=== PATIENT | male | born 1965 | race Caucasian/White ===

== ENCOUNTER 2021-10-29 02:28 | Observation (INO) | payer MEDICAID, SELFPAY ==
[2021-10-29] VITALS (8 sets, daily range): BP systolic 112–179; BP diastolic 68–88; PULSE 59–94; RESP 9–22; TEMP 37.1–37.8; O2SAT 92–98; BMI 27.3
--- NOTE | ~2021-10-29 | US_ITS ---
EXAMINATION: US ABDOMEN LIMITED CLINICAL INFORMATION: Elevated bilirubin. COMPARISON: Ultrasound abdomen complete dated 07/18/2016 and 05/05/2010. CT abdomen and pelvis with contrast dated 08/25/2012. TECHNIQUE: Real-time imaging of the right upper quadrant abdominal viscera. FINDINGS: PANCREAS: Normal. LIVER:The liver is normal in size. The liver contour is normal. Parenchymal echogenicity is normal. No focal hepatic lesion. Mild prominence of intrahepatic ducts are noted GALLBLADDER: There is gallbladder sludge but no echogenic stones seen. There is mild gallbladder wall thickening measuring 0.35 cm. No pericholecystic fluid collection seen. COMMON BILE DUCT: Normal in caliber measuring 0.52 cm in diameter. RIGHT KIDNEY: Normal. No hydronephrosis. No renal calculi or focal parenchymal lesions. The kidney measures 12.3 cm in maximum dimension. FREE FLUID: None. US/US abdomen limited IMPRESSION: Gallbladder sludge but no echogenic stones. There is mild wall thickening. Mild prominence of intrahepatic ducts. Liver is unremarkable otherwise.
--- NOTE | ~2021-10-29 | CT_ITS ---
EXAMINATION: CT ANGIOGRAM OF THE CHEST WITH AND WITHOUT CONTRAST (CT PULMONARY ANGIOGRAM FOR PE) CLINICAL INFORMATION: Reason for Exam chest pain COMPARISON: 07/18/2016 TECHNIQUE: Prior to contrast administration, noncontrast localization images were obtained. Subsequently, multidetector volumetric imaging was performed from the thoracic inlet to below the diaphragms following the administration of 65 mL Omnipaque 350 intravenous contrast. No contrast reaction reported Sagittal, coronal, and MIP oblique sagittal reformatted images were obtained on the CT workstation, uploaded to PACS, and reviewed. This CT examination was performed using dose optimization techniques as appropriate, variously including the following: *Automated exposure control *Adjustment of mA and/or kV according to patient size (this includes techniques or standardized protocols for targeted exams where dose is matched to indication/reason for exam; i.e. extremities or head) *Use of iterative reconstruction technique Total exam dose-length product 294 mGy-cm FINDINGS: QUALITY OF STUDY/CONTRAST BOLUS: Satisfactory. PULMONARY ARTERIES: No central or segmental pulmonary emboli. Dilated pulmonary arteries, with the main pulmonary artery measuring approximately 4.2 cm, suspicious for pulmonary artery hypertension. THORACIC AORTA: No aneurysm or dissection. LUNG: Mild dependent atelectasis. No regions of consolidation bilaterally. Calcified granuloma noted in the right middle lobe. PLEURA: No pleural effusion or pneumothorax. MEDIASTINUM: Thyroid gland appears diminutive. There are subcentimeter mediastinal lymph nodes within the range of normal variation. Cardiac size is within normal limits; no pericardial effusion. Coronary artery calcifications are present. CHEST WALL/AXILLA: No axillary or internal mammary lymphadenopathy. OSSEOUS STRUCTURES: No acute or suspicious osseous abnormality. UPPER ABDOMEN: Nodular contour of the liver is suspicious for cirrhosis. Visualized spleen appears enlarged. No reflux of contrast into the hepatic veins to suggest elevated right heart pressures. CT/CT angio chest PE protocol IMPRESSION: 1. No pulmonary embolus identified. 2. Dilated pulmonary arteries, suspicious for pulmonary artery hypertension. 3. Coronary artery calcifications. Correlation with cardiac risk factors is recommended. VTE: negative
--- NOTE | 2021-10-29 03:03 | ECG_ITS ---
Test Reason : CHEST PAIN Blood Pressure : / mmHG Vent. Rate : 086 BPM Atrial Rate : 086 BPM P-R Int : 148 ms QRS Dur : 086 ms QT Int : 390 ms P-R-T Axes : 067 066 050 degrees QTc Int : 466 ms Normal sinus rhythm Nonspecific ST abnormality Abnormal ECG When compared with ECG of 26-MAY-2017 16:14, Nonspecific ST abnormality is now Present Referred By: Frances Barnes Electronically Signed By:OSWALDO ECHAVARRIA
--- NOTE | 2021-10-29 03:28 | ED_ITS ---
HPI - Chest Pain General Chief Complaint: Chest Pain Stated Complaint: ? Time Seen by Provider: 10/29/21 02:43 Source: patient Mode of arrival: EMS Limitations: no limitations History of Present Illness HPI narrative: 56 yo male with hx of hep C, IVDA heroin, on methadone, comes in with c/o pleuritic chest pain and bilateral leg pain x 2 days with leg swelling. Last used heroin 24 hours ago. Patient denies cough. He reports he has not had swelling like this before. Patient denies having endocarditis before as well. MD complaint: chest pain Pertinent past history: other (IVDA) Onset (ago): day(s) (2) Timing of current episode: episodic Prior episodes: No Onset: during rest Pain location: substernal Pain radiation: none Severity: moderate Quality: sharp Relieving factors: nothing Exacerbating factors: inspiration Context: other (IVDA) Associated symptoms: nausea, dyspnea, leg swelling and other (chills) Treatment prior to arrival: none Related Data Allergies Allergy/AdvReac Type Severity Reaction Status Date / Time No Known Allergies Allergy Mild NOT Unverified 11/07/19 15:45 APPLICABLE Review of Systems Review of Systems: Constitutional : No Weight loss, No Fever, pos Chills ENT/Mouth : No sore throat, No Rhinorrhea Eyes: No Eye Pain, No Swelling Cardiovascular : pos Chest Pain, pos SOB, no Dyspnea on Exertion, No Orthopnea, pos Edema, No Palpitations Respiratory : No Cough, No Sputum Gastrointestinal : pos Nausea, No Vomiting, No Diarrhea, No abdominal Pain, No Hematochezia, No Melena Genitourinary : No Dysuria, No Urinary Frequency Musculoskeletal : No joint pain, No Myalgias, No Joint Swelling Skin : No Skin Lesions, No rash Neuro : No Weakness, No Numbness, No Dizziness, No Headache Psych : No Anxiety/Panic, No Depression Heme/Lymph: No Bruising, No Lymphadenopathy Endocrine : No Polyuria, No Polydipsia All other systems reviewed and are negative [facility] Past Medical History Attestation statement: The following information was validated with the patient. Medical History Hepatitis C Intravenous drug abuse Social History Social History (Updated 10/29/21 @ 03:35 by Frances Barnes DO) Patient Tobacco Use Status: Current someday Tobacco user Substance Use Type: Heroin Advance Directives: No Advance Directives Information Provided: Yes Physical Exam Vital Signs: Vital Signs: Last Vital Signs Temp 100.0 F 10/29/21 04:00 Pulse 79 10/29/21 05:53 Resp 13 10/29/21 05:53 BP 127/78 10/29/21 05:53 Pulse Ox 92 10/29/21 05:53 O2 Del Method 10/29/21 05:53 O2 Flow Rate 2 10/29/21 05:53 BMI result Body Mass Index 27.3 Appearance: Alert. Oriented X3. No acute distress. Eyes: Pupils equal, round and reactive to light. Scleral icterus ENT: Pharynx normal. Neck: Normal inspection. Neck supple. CVS: Normal heart rate and rhythm. Pulses normal. Respiratory: No respiratory distress. Breath sounds diminished throughout Abdomen: Soft and nontender. Skin: Skin warm and dry. Normal skin color. Normal skin turgor. + track beach noted both forearms Extremities: 2+ pitting lower extremity edema. No erythema or warmth Neuro: Oriented X 3. No motor deficit. No sensory deficit. Course Course Course Narrative: planned admit for endocarditis rule out - hospitalist notified 6am MDM - Chest Pain MDM Narrative Medical decision making narrative: 56 yo male with hx of hep C, IVDA here with chills, chest pain, leg swelling at this time will obtain blood cultures, lactic acid, EKG, CTA for pneumonia/PE, empiric cefepime and vancomycin for possible endocarditis - anticipate ad mission. Lab Data Result diagrams: 10/29/21 03:26 10/29/21 04:11 Labs: Lab Results 10/29/21 10/29/21 10/29/21 Range/Units 03:26 03:26 03:26 WBC 8.6 (4.8-10.8) X10*3/uL RBC 4.21 L (4.60-5.80) X10*6/uL Hgb 13.5 L (14.0-18.0) g/dl Hct 39.9 L (42.0-52.0) % MCV 94.8 (80.0-98.0) fL MCH 32.1 (27.0-33.0) pg MCHC 33.8 (31.0-36.0) g/dl RDW 16.0 (11.0-16.0) % Plt Count 59 L (160-400) X10*3/uL MPV 12.7 H (9.4-12.4) fL Immature Gran % (Auto) 0.6 H (0.0-0.4) % Neut % (Auto) 82.5 H (45-73) % Lymph % (Auto) 8.6 L (20-40) % [place] % (Auto) 7.8 (2-11) % Eos % (Auto) 0.0 (0-4) % Baso % (Auto) 0.5 (0-2) % Lymph # (Auto) 0.7 L (1.2-4.9) X10*3/uL [place] # (Auto) 0.7 (0.1-1.2) X10*3/uL Eos # (Auto) 0.0 (0.0-0.4) X10*3/uL Baso # (Auto) 0.0 (0.0-0.2) X10*3/uL Abs Immat Gran (auto) 0.05 H (0.00-0.03) X10*3/uL Absolute Neuts (auto) 7.1 (2.0-8.3) x10*3/uL Absolute Nucleated RBC 0.000 (0.0-0.012) X10*3/uL Nucleated RBC % (auto) 0.0 (0.0-0.2) /100WBC PT (10.0-13.1) SEC INR (0.9-1.1) APTT (26.0-36.4) SEC Sodium (135-145) mmol/L Potassium (3.3-5.1) mmol/L Chloride (96-108) mmol/L Carbon Dioxide (22-29) mmol/L Anion Gap (12-20) BUN (9-16) mg/dL Creatinine (0.5-1.4) mg/dL Estim Creat Clear Calc Estimated GFR Random Glucose (60-115) mg/dL Lactic Acid 2.1 H* (0.5-2.0) mmol/L Calcium (8.4-10.2) mg/dL Magnesium (1.6-2.6) mg/dL Total Bilirubin (0.0-1.0) mg/dL Direct Bilirubin (0.0-0.5) mg/dL AST (5-37) U/L ALT (0-40) U/L Alkaline Phosphatase (39-117) U/L Total Creatine Kinase (38-174) U/L Troponin I High Sens (<3.5-35.0) ng/L B-Natriuretic Peptide 197 H (<100) pg/mL Total Protein (6.5-8.0) g/dL Albumin (3.5-5.0) g/dL Procalcitonin ng/mL Urine Color Urine Appearance Urine pH (5.0-9.0) Ur Specific [place] (1.005-1.025) Urine Protein (Neg-Trace) mg/dL Urine Glucose (UA) (Negative) mg/dL Urine Ketones (Negative) mg/dL Urine Blood (Negative) Urine Nitrite (Negative) Ur Leukocyte Esterase (Negative) Urine Opiates Screen (Not Detect) Urine Fentanyl Screen (Not Detect) Ur Barbiturates Screen (Not Detect) Ur Phencyclidine Scrn (Not Detect) Ur Amphetamines Screen (Not Detect) U Benzodiazepines Scrn (Not Detect) Urine Cocaine Screen (Not Detect) U Marijuana (THC) Screen (Not Detect) COVID-19 (DEREK) (Negative) COVID-19 Clin Com 10/29/21 10/29/21 10/29/21 Range/Units 03:26 03:26 03:26 WBC (4.8-10.8) X10*3/uL RBC (4.60-5.80) X10*6/uL Hgb (14.0-18.0) g/dl Hct (42.0-52.0) % MCV (80.0-98.0) fL MCH (27.0-33.0) pg MCHC (31.0-36.0) g/dl RDW (11.0-16.0) % Plt Count (160-400) X10*3/uL MPV (9.4-12.4) fL Immature Gran % (Auto) (0.0-0.4) % Neut % (Auto) (45-73) % Lymph % (Auto) (20-40) % [place] % (Auto) (2-11) % Eos % (Auto) (0-4) % Baso % (Auto) (0-2) % Lymph # (Auto) (1.2-4.9) X10*3/uL [place] # (Auto) (0.1-1.2) X10*3/uL Eos # (Auto) (0.0-0.4) X10*3/uL Baso # (Auto) (0.0-0.2) X10*3/uL Abs Immat Gran (auto) (0.00-0.03) X10*3/uL Absolute Neuts (auto) (2.0-8.3) x10*3/uL Absolute Nucleated RBC (0.0-0.012) X10*3/uL Nucleated RBC % (auto) (0.0-0.2) /100WBC PT 18.6 H (10.0-13.1) SEC INR 1.6 H (0.9-1.1) APTT 34.5 (26.0-36.4) SEC Sodium (135-145) mmol/L Potassium (3.3-5.1) mmol/L Chloride (96-108) mmol/L Carbon Dioxide (22-29) mmol/L Anion Gap (12-20) BUN (9-16) mg/dL Creatinine (0.5-1.4) mg/dL Estim Creat Clear Calc Estimated GFR Random Glucose (60-115) mg/dL Lactic Acid (0.5-2.0) mmol/L Calcium (8.4-10.2) mg/dL Magnesium (1.6-2.6) mg/dL Total Bilirubin (0.0-1.0) mg/dL Direct Bilirubin (0.0-0.5) mg/dL AST (5-37) U/L ALT (0-40) U/L Alkaline Phosphatase (39-117) U/L Total Creatine Kinase (38-174) U/L Troponin I High Sens 5.2 (<3.5-35.0) ng/L B-Natriuretic Peptide (<100) pg/mL Total Protein (6.5-8.0) g/dL Albumin (3.5-5.0) g/dL Procalcitonin ng/mL Urine Color Urine Appearance Urine pH (5.0-9.0) Ur Specific [place] (1.005-1.025) Urine Protein (Neg-Trace) mg/dL Urine Glucose (UA) (Negative) mg/dL Urine Ketones (Negative) mg/dL Urine Blood (Negative) Urine Nitrite (Negative) Ur Leukocyte Esterase (Negative) Urine Opiates Screen (Not Detect) Urine Fentanyl Screen (Not Detect) Ur Barbiturates Screen (Not Detect) Ur Phencyclidine Scrn (Not Detect) Ur Amphetamines Screen (Not Detect) U Benzodiazepines Scrn (Not Detect) Urine Cocaine Screen (Not Detect) U Marijuana (THC) Screen (Not Detect) COVID-19 (DEREK) Negative (Negative) COVID-19 Clin Com See Note 10/29/21 10/29/21 10/29/21 Range/Units 03:26 04:11 04:40 WBC (4.8-10.8) X10*3/uL RBC (4.60-5.80) X10*6/uL Hgb (14.0-18.0) g/dl Hct (42.0-52.0) % MCV (80.0-98.0) fL MCH (27.0-33.0) pg MCHC (31.0-36.0) g/dl RDW (11.0-16.0) % Plt Count (160-400) X10*3/uL MPV (9.4-12.4) fL Immature Gran % (Auto) (0.0-0.4) % Neut % (Auto) (45-73) % Lymph % (Auto) (20-40) % [place] % (Auto) (2-11) % Eos % (Auto) (0-4) % Baso % (Auto) (0-2) % Lymph # (Auto) (1.2-4.9) X10*3/uL [place] # (Auto) (0.1-1.2) X10*3/uL Eos # (Auto) (0.0-0.4) X10*3/uL Baso # (Auto) (0.0-0.2) X10*3/uL Abs Immat Gran (auto) (0.00-0.03) X10*3/uL Absolute Neuts (auto) (2.0-8.3) x10*3/uL Absolute Nucleated RBC (0.0-0.012) X10*3/uL Nucleated RBC % (auto) (0.0-0.2) /100WBC PT (10.0-13.1) SEC INR (0.9-1.1) APTT (26.0-36.4) SEC Sodium 134 L (135-145) mmol/L Potassium 3.5 (3.3-5.1) mmol/L Chloride 102 (96-108) mmol/L Carbon Dioxide 24 (22-29) mmol/L Anion Gap 12 (12-20) BUN 6 L (9-16) mg/dL Creatinine 0.73 (0.5-1.4) mg/dL Estim Creat Clear Calc 106.7 Estimated GFR > 60 Random Glucose 105 (60-115) mg/dL Lactic Acid (0.5-2.0) mmol/L Calcium 8.0 L (8.4-10.2) mg/dL Magnesium 1.6 (1.6-2.6) mg/dL Total Bilirubin 4.5 H (0.0-1.0) mg/dL Direct Bilirubin 1.7 H (0.0-0.5) mg/dL AST 96 H (5-37) U/L ALT 50 H (0-40) U/L Alkaline Phosphatase 156 H (39-117) U/L Total Creatine Kinase 114 (38-174) U/L Troponin I High Sens (<3.5-35.0) ng/L B-Natriuretic Peptide (<100) pg/mL Total Protein 8.1 H (6.5-8.0) g/dL Albumin 2.7 L (3.5-5.0) g/dL Procalcitonin 0.68 ng/mL Urine Color Urine Appearance Urine pH (5.0-9.0) Ur Specific [place] (1.005-1.025) Urine Protein (Neg-Trace) mg/dL Urine Glucose (UA) (Negative) mg/dL Urine Ketones (Negative) mg/dL Urine Blood (Negative) Urine Nitrite (Negative) Ur Leukocyte Esterase (Negative) Urine Opiates Screen Not Detected (Not Detect) Urine Fentanyl Screen POSITIVE H (Not Detect) Ur Barbiturates Screen Not Detected (Not Detect) Ur Phencyclidine Scrn Not Detected (Not Detect) Ur Amphetamines Screen Not Detected (Not Detect) U Benzodiazepines Scrn Not Detected (Not Detect) Urine Cocaine Screen Not Detected (Not Detect) U Marijuana (THC) Screen Not Detected (Not Detect) COVID-19 (DEREK) (Negative) COVID-19 Clin [facility] 10/29/21 Range/Units 04:40 WBC (4.8-10.8) X10*3/uL RBC (4.60-5.80) X10*6/uL Hgb (14.0-18.0) g/dl Hct (42.0-52.0) % MCV (80.0-98.0) fL MCH (27.0-33.0) pg MCHC (31.0-36.0) g/dl RDW (11.0-16.0) % Plt Count (160-400) X10*3/uL MPV (9.4-12.4) fL Immature Gran % (Auto) (0.0-0.4) % Neut % (Auto) (45-73) % Lymph % (Auto) (20-40) % [place] % (Auto) (2-11) % Eos % (Auto) (0-4) % Baso % (Auto) (0-2) % Lymph # (Auto) (1.2-4.9) X10*3/uL [place] # (Auto) (0.1-1.2) X10*3/uL Eos # (Auto) (0.0-0.4) X10*3/uL Baso # (Auto) (0.0-0.2) X10*3/uL Abs Immat Gran (auto) (0.00-0.03) X10*3/uL Absolute Neuts (auto) (2.0-8.3) x10*3/uL Absolute Nucleated RBC (0.0-0.012) X10*3/uL Nucleated RBC % (auto) (0.0-0.2) /100WBC PT (10.0-13.1) SEC INR (0.9-1.1) APTT (26.0-36.4) SEC Sodium (135-145) mmol/L Potassium (3.3-5.1) mmol/L Chloride (96-108) mmol/L Carbon Dioxide (22-29) mmol/L Anion Gap (12-20) BUN (9-16) mg/dL Creatinine (0.5-1.4) mg/dL Estim Creat Clear Calc Estimated GFR Random Glucose (60-115) mg/dL Lactic Acid (0.5-2.0) mmol/L Calcium (8.4-10.2) mg/dL Magnesium (1.6-2.6) mg/dL Total Bilirubin (0.0-1.0) mg/dL Direct Bilirubin (0.0-0.5) mg/dL AST (5-37) U/L ALT (0-40) U/L Alkaline Phosphatase (39-117) U/L Total Creatine Kinase (38-174) U/L Troponin I High Sens (<3.5-35.0) ng/L B-Natriuretic Peptide (<100) pg/mL Total Protein (6.5-8.0) g/dL Albumin (3.5-5.0) g/dL Procalcitonin ng/mL Urine Color Dark Yellow Urine Appearance Clear Urine pH 7.0 (5.0-9.0) Ur Specific [place] 1.015 (1.005-1.025) Urine Protein Negative (Neg-Trace) mg/dL Urine Glucose (UA) Negative (Negative) mg/dL Urine Ketones Negative (Negative) mg/dL Urine Blood Negative (Negative) Urine Nitrite Negative (Negative) Ur Leukocyte Esterase Negative (Negative) Urine Opiates Screen (Not Detect) Urine Fentanyl Screen (Not Detect) Ur Barbiturates Screen (Not Detect) Ur Phencyclidine Scrn (Not Detect) Ur Amphetamines Screen (Not Detect) U Benzodiazepines Scrn (Not Detect) Urine Cocaine Screen (Not Detect) U Marijuana (THC) Screen (Not Detect) COVID-19 (DEREK) (Negative) COVID-19 Clin Com ECG Data ECG #1: Attestation: I personally reviewed and interpreted this ECG as follows: ECG interpretation date: 10/29/21 ECG interpretation time: 03:46 Interpretation: Rate: 86 Rhythm: NSR [place]: normal Normal P waves. Normal SHELLY. Normal QRS complex. ST T wave : nonspecific, no FELIPE, slight depression ST seg inf leads qTC: slightly prolonged prior studies: none The study has been interpreted contemporaneously by me. . Discharge Plan Discharge Clinical Impression: Chest pain, Fever, Thrombocytopenia, Elevated LFTs, Acidosis, lactic Patient Disposition: Admitted As Inpatient
[2021-10-29 03:34] LABS: Basophils Percent Auto 0.5 % (0-2); Hemoglobin 13.5 g/dl (14.0-18.0); Mean Corpuscular HGB Conc 33.8 g/dl (31.0-36.0); Mean Corpuscular Volume 94.8 fL (80.0-98.0); PLT CLUMP 1; SCAN SMEAR FLAG 1
[2021-10-29 03:36] LABS: Hematocrit 39.9 % (42.0-52.0); Imm Gran Abs Auto 0.05 X10*3/uL (0.00-0.03); Imm Gran Pct Auto 0.6 % (0.0-0.4); Lymphocytes Absolute Auto 0.7 X10*3/uL (1.2-4.9); Lymphocytes Percent Auto 8.6 % (20-40); Mean Corpuscular Hemoglobin 32.1 pg (27.0-33.0); Mean Platelet Volume 12.7 fL (9.4-12.4); Monocytes Absolute Auto 0.7 X10*3/uL (0.1-1.2); Monocytes Percent Auto 7.8 % (2-11); Neutrophils Absolute Auto 7.1 x10*3/uL (2.0-8.3); Neutrophils Percent Auto 82.5 % (45-73); Red Blood Count 4.21 X10*6/uL (4.60-5.80)
[2021-10-29] MEDS: cefEPime HCl 2 GM in 0.9 % Sodium Chloride 50 ML IV ×2 (03:36→15:41)
[2021-10-29 03:38] LABS: MANUAL DIFF FLAG NO; Platelet Count 59 X10*3/uL (160-400); White Blood Count 8.6 X10*3/uL (4.8-10.8)
[2021-10-29 03:39] LABS: INTERNATIONAL NORM RATIO 1.6 (0.9-1.1); Prothrombin Time 18.6 SEC (10.0-13.1)
[2021-10-29 03:42] LABS: Partial Thromboplastin Time 34.5 SEC (26.0-36.4)
[2021-10-29 03:46] LABS: COVID-19 Test Negative (Negative)
[2021-10-29 03:50] LABS: Lactic Acid 2.1 mmol/L (0.5-2.0)
[2021-10-29] MEDS: Acetaminophen 325 MG TABLET 650 MG PO (03:50)
[2021-10-29 03:58] LABS: B Type Natriuretic Peptide 197 pg/mL (<100); Troponin-I High Sensitivity 5.2 ng/L (<3.5-35.0)
[2021-10-29 04:23] LABS: Procalcitonin 0.68 ng/mL
[2021-10-29 04:39] LABS: Alanine Aminotransferase 50 U/L (0-40); Albumin Level 2.7 g/dL (3.5-5.0); Alkaline Phosphatase 156 U/L (39-117); Anion Gap 12 (12-20); Aspartate Amino Transferase 96 U/L (5-37); Bilirubin Direct 1.7 mg/dL (0.0-0.5); Bilirubin Total 4.5 mg/dL (0.0-1.0); Blood Urea Nitrogen 6 mg/dL (9-16); Carbon Dioxide 24 mmol/L (22-29); Chloride 102 mmol/L (96-108); Creatinine Clr Calc Pharmacy 106.7; Estimated Glomerular Filt Rate > 60; Glucose Random 105 mg/dL (60-115); Magnesium 1.6 mg/dL (1.6-2.6); Sodium 134 mmol/L (135-145); Total Protein 8.1 g/dL (6.5-8.0)
[2021-10-29 04:47] LABS: Appearance Urine Clear; Color Urine Dark Yellow; Glucose Urine UA Negative (Negative); Leukocyte Esterase Urine Negative (Negative); Nitrite Urine Negative (Negative); Specific Gravity - Urine 1.015 (1.005-1.025); Urine Blood Negative (Negative); Urine Ketones Negative (Negative); Urine Protein Negative (Neg-Trace)
[2021-10-29 05:01] LABS: Amphetamine Screen Urine Not Detected (Not Detect); Barbiturates, Urine Not Detected (Not Detect); Benzodiazepines Screen Urine Not Detected (Not Detect); Cannabinoid Screen Urine Not Detected (Not Detect); Cocaine Screen Urine Not Detected (Not Detect); Fentanyl, urine POSITIVE (Not Detect); Opiate Screen Urine Not Detected (Not Detect); Phencyclidine Screen Urine Not Detected (Not Detect)
[2021-10-29 05:32] LABS: Reflex Lactate? Lactic Acid Added
[2021-10-29] MEDS: iohexoL 350 MG/ML 100 ML INFUS..BTL 65 ML IV (05:47)
[2021-10-29 06:12] LABS: C Reactive Protein 0.94 mg/dL (< or = 0.50)
[2021-10-29] MEDS: oxyCODONE HCl Immed Release 5 MG TABLET 10 MG PO (06:22)
--- NOTE | 2021-10-29 06:33 | PHA.PROG ---
Admission Date/Time: Indication: OTHER (POSSIBLE ENDOCARDITIS) Weight in k.647 kg Adjusted body weight in K.6 Patterson body weight in Kg: Obesity Dosing Indication % IBW: Serum Creatinine - Last 168 Hours 10/29/21 04:11 Creatinine 0.73 Estimated CrCl and GFR - Last 168 Hours 10/29/21 04:11 Estim Creat Clear Calc 106.7 Estimated GFR > 60 Vancomycin Loading Dose: 2000 MG Current Vancomycin Dosing Regimen: 1250MG Q12H Vancomycin Monitoring using AUC goal of 400 - 600 range with trough as surrogate marker: AUC 529; TROUGH 16.0 Date and Time for next Vancomycin Level to be drawn: 10/30 @1400 Pharmacist Comments on Vancomycin Plan: 15MG/KG DOSING REGIMEN MORE AGGRESSIVE DUE TO POSSIBLE ENDOCARDITIS PUT IN ANOTHER SCR FOR 1000 TODAY PHARMACY TO MONITOR CLOSELY Vancomycin dosing will take advantage of [employer] as a clinical decision support tool that uses Bayesian modeling to calculate individual patient's pharmacokinetic parameters and forecast the patient's drug concentration time course with the target goal AUC 24 range of 400 - 600 mg/L/hr.
[2021-10-29 06:34] LABS: ~Lactic Acid-LAB USE ONLY 0.9 mmol/L (0.5-2.0)
[2021-10-29 08:24] LABS: Potassium 3.6 mmol/L (3.3-5.1)
--- NOTE | 2021-10-29 08:45 | PHA.MEDREC ---
Pharmacy Consult ? Medication Reconciliation Pharmacy has completed the medication reconciliation.Spoke with patient in the ED. Patient states his methadone is 80 mg. Spoke with nel at [facility] and last dose was 64 mg on 10/27/21. His 10/28/21 dose was denied because patient refused breathlizer test.
--- NOTE | 2021-10-29 09:03 | PM.IMHP ---
History of Present Illness Date of Service: 10/29/21 Chief Complaint: Chest pain This is a 56 year old male with a PMH of HIV (not on HAART), Hep C (untreated), active IVDU (reports last in the days prior to admission), who presented to [facility] with complaints of chest pain which began the day prior to admission. He describes the pain as pleuritic in nature (worsening with inspiration), severe in intensity (7-10/10), sharp, on the L sided and non-radiating. He reports no associated shortness of breath or cough. He reports chills but denies fevers. He also reports leg swelling which he noticed on the day prior to admission as well. He reports being on methadone. Work up in the ED routine labs and CTA chest which is negative for PE (see full details below). Noted thrombocytopenia which is chronic and hyperbilirubinemia, worsened that prior values. He had a low grade temp of 100.0. He has been given IV vancomyin/cefepime and admission has been requested. The patient reports that his chest pain is resolved at the time of admission. Review of Systems Review of Systems: negative except HPI PMFSH Medical History Hepatitis C HIV (human immunodeficiency virus infection) Intravenous drug abuse Pertinent family history: [place]road Ca in father Surgical History (Updated 10/29/21 @ 09:45 by Abelino Flanagan MD) H/O lymph node biopsy Social History (Updated 10/29/21 @ 09:54 by Abelino Flanagan MD) Alcohol intake: current Alcohol intake frequency: a few times a month Patient Tobacco Use Status: Current someday Tobacco user Substance Use Type: Heroin Advance Directives: No Advance Directives Information Provided: Yes Meds Allergies Allergy/AdvReac Type Severity Reaction Status Date / Time No Known Allergies Allergy Mild NOT Unverified 11/07/19 15:45 APPLICABLE Active Medications: Current Medications Acetaminophen (Acetaminophen 325 Mg Tablet) 650 mg PO Q6H PRN PRN Reason: Pain, Mild (Pain Scale 1-3) Aripiprazole (Aripiprazole 10 Mg Tablet) 10 mg PO BEDTIME [facility] Vancomycin HCl 1,250 mg/ (Sodium Chloride) 250 mls @ 166.667 mls/hr IV Q12H [facility] Cefepime HCl 1 gm/ Sodium (Chloride) 50 mls @ 100 mls/hr IV Q12H [facility] Methadone HCl (Methadone Hcl 20 Mg/2 Ml Oral.Conc) 64 mg PO DAILY [facility] Nadolol (Nadolol 20 Mg Tablet) 20 mg PO DAILY [facility]; Protocol Ondansetron HCl (Ondansetron Hcl 4 Mg/2 Ml Vial) 4 mg IVPUSH Q8H PRN PRN Reason: Nausea and Vomiting Pharmacy Consult (Consult Rx Vancomycin Dosing) 1 each MISCELLANE DAILY PRN PRN Reason: Consult order Pharmacy Consult (Consult Rx Perform Med Rec) 1 each MISCELLANE ONCE PRN PRN Reason: Consult order Trazodone HCl (Trazodone Hcl 50 Mg Tablet) 50 mg PO BEDTIME PRN PRN Reason: Sleep Venlafaxine HCl (Venlafaxine Hcl Er 37.5 Mg Cap.Er.24h) 37.5 mg PO DAILY [facility] Home Medications Medication Instructions Recorded Confirmed Last Taken Type aripiprazole 10 mg tablet 1 tab PO BEDTIME 10/29/21 10/29/21 Unknown History methadone 10 mg/mL oral concentrate 64 mg PO DAILY 10/29/21 10/29/21 10/27/21 History nadolol 20 mg tablet 1 tab PO DAILY 10/29/21 10/29/21 Unknown History trazodone 50 mg tablet 1 tab PO BEDTIME PRN Sleep 10/29/21 10/29/21 Unknown History venlafaxine 37.5 mg 1 cap PO DAILY 10/29/21 10/29/21 Unknown History capsule,extended release 24 hr Physical Exam Vital Signs and Narrative: Vital Signs: Last Vital Signs Temp 100.0 F 10/29/21 04:00 Pulse 91 10/29/21 07:17 Resp 22 H 10/29/21 07:17 BP 179/77 H 10/29/21 07:17 Pulse Ox 94 10/29/21 07:17 O2 Del Method 10/29/21 07:17 O2 Flow Rate 2 10/29/21 06:05 BMI result Body Mass Index 27.3 Const: Other: Constitutional - Awake and Alert, No apparent distress Eyes - PERRLA, EOMI Cardiovascular - S1S2, RRR, Respiratory - Normal lung expansion, Normal respiratory effort, No respiratory distress, CTA bilaterally Gastrointestinal - NT / ND; +BS; No rebound or guarding - No CVA tenderness Extremities - no calf tenderness bilaterally, minimal b/l LE edema Musculoskeletal - Normal inspection, normal ROM Skin - Warm/Dry, track beach b/l UE Neurological - Alert & oriented x3, No focal deficit Psychological - Appropriate affect Results Labs CBC and Chem 7: 10/29/21 03:26 10/29/21 04:11 Labs: Laboratory Results - last 24 hr 10/29/21 10/29/21 10/29/21 03:26 03:26 03:26 MCV 94.8 MCH 32.1 MCHC 33.8 RDW 16.0 Plt Count 59 L MPV 12.7 H Immature Gran % (Auto) 0.6 H Neut % (Auto) 82.5 H Lymph % (Auto) 8.6 L [place] % (Auto) 7.8 Eos % (Auto) 0.0 Baso % (Auto) 0.5 Lymph # (Auto) 0.7 L [place] # (Auto) 0.7 Eos # (Auto) 0.0 Baso # (Auto) 0.0 Abs Immat Gran (auto) 0.05 H Absolute Neuts (auto) 7.1 Absolute Nucleated RBC 0.000 Nucleated RBC % (auto) 0.0 PT INR APTT Anion Gap Estim Creat Clear Calc Estimated GFR Random Glucose Lactic Acid 2.1 H* Lactic Acid F/U @ 2Hr Calcium Magnesium Total Bilirubin Direct Bilirubin AST ALT Alkaline Phosphatase Total Creatine Kinase C-Reactive Protein B-Natriuretic Peptide 197 H Total Protein Albumin Procalcitonin Urine Color Urine Appearance Urine pH Ur Specific [place] Urine Protein Urine Glucose (UA) Urine Ketones Urine Blood Urine Nitrite Ur Leukocyte Esterase Urine Opiates Screen Urine Fentanyl Screen Ur Barbiturates Screen Ur Phencyclidine Scrn Ur Amphetamines Screen U Benzodiazepines Scrn Urine Cocaine Screen U Marijuana (THC) Screen COVID-19 ([facility]) COVID-19 Clin Com 10/29/21 10/29/21 10/29/21 03:26 03:26 03:26 MCV MCH MCHC RDW Plt Count MPV Immature Gran % (Auto) Neut % (Auto) Lymph % (Auto) [place] % (Auto) Eos % (Auto) Baso % (Auto) Lymph # (Auto) [place] # (Auto) Eos # (Auto) Baso # (Auto) Abs Immat Gran (auto) Absolute Neuts (auto) Absolute Nucleated RBC Nucleated RBC % (auto) PT 18.6 H INR 1.6 H APTT 34.5 Anion Gap Estim Creat Clear Calc Estimated GFR Random Glucose Lactic Acid Lactic Acid F/U @ 2Hr Calcium Magnesium Total Bilirubin Direct Bilirubin AST ALT Alkaline Phosphatase Total Creatine Kinase C-Reactive Protein B-Natriuretic Peptide Total Protein Albumin Procalcitonin 0.68 Urine Color Urine Appearance Urine pH Ur Specific [place] Urine Protein Urine Glucose (UA) Urine Ketones Urine Blood Urine Nitrite Ur Leukocyte Esterase Urine Opiates Screen Urine Fentanyl Screen Ur Barbiturates Screen Ur Phencyclidine Scrn Ur Amphetamines Screen U Benzodiazepines Scrn Urine Cocaine Screen U Marijuana (THC) Screen COVID-19 (DEREK) Negative COVID-19 Clin Com See Note 10/29/21 10/29/21 10/29/21 04:11 04:40 04:40 MCV MCH MCHC RDW Plt Count MPV Immature Gran % (Auto) Neut % (Auto) Lymph % (Auto) [place] % (Auto) Eos % (Auto) Baso % (Auto) Lymph # (Auto) [place] # (Auto) Eos # (Auto) Baso # (Auto) Abs Immat Gran (auto) Absolute Neuts (auto) Absolute Nucleated RBC Nucleated RBC % (auto) PT INR APTT Anion Gap 12 Estim Creat Clear Calc 106.7 Estimated GFR > 60 Random Glucose 105 Lactic Acid Lactic Acid F/U @ 2Hr Calcium 8.0 L Magnesium 1.6 Total Bilirubin 4.5 H Direct Bilirubin 1.7 H AST 96 H ALT 50 H Alkaline Phosphatase 156 H Total Creatine Kinase 114 C-Reactive Protein 0.94 H B-Natriuretic Peptide Total Protein 8.1 H Albumin 2.7 L Procalcitonin Urine Color Dark Yellow Urine Appearance Clear Urine pH 7.0 Ur Specific [place] 1.015 Urine Protein Negative Urine Glucose (UA) Negative Urine Ketones Negative Urine Blood Negative Urine Nitrite Negative Ur Leukocyte Esterase Negative Urine Opiates Screen Not Detected Urine Fentanyl Screen POSITIVE H Ur Barbiturates Screen Not Detected Ur Phencyclidine Scrn Not Detected Ur Amphetamines Screen Not Detected U Benzodiazepines Scrn Not Detected Urine Cocaine Screen Not Detected U Marijuana (THC) Screen Not Detected COVID-19 ([facility]) COVID-19 Clin Com 10/29/21 06:15 MCV MCH MCHC RDW Plt Count MPV Immature Gran % (Auto) Neut % (Auto) Lymph % (Auto) [place] % (Auto) Eos % (Auto) Baso % (Auto) Lymph # (Auto) [place] # (Auto) Eos # (Auto) Baso # (Auto) Abs Immat Gran (auto) Absolute Neuts (auto) Absolute Nucleated RBC Nucleated RBC % (auto) PT INR APTT Anion Gap Estim Creat Clear Calc Estimated GFR Random Glucose Lactic Acid Lactic Acid F/U @ 2Hr 0.9 Calcium Magnesium Total Bilirubin Direct Bilirubin AST ALT Alkaline Phosphatase Total Creatine Kinase C-Reactive Protein B-Natriuretic Peptide Total Protein Albumin Procalcitonin Urine Color Urine Appearance Urine pH Ur Specific [place] Urine Protein Urine Glucose (UA) Urine Ketones Urine Blood Urine Nitrite Ur Leukocyte Esterase Urine Opiates Screen Urine Fentanyl Screen Ur Barbiturates Screen Ur Phencyclidine Scrn Ur Amphetamines Screen U Benzodiazepines Scrn Urine Cocaine Screen U Marijuana (THC) Screen COVID-19 (DEREK) COVID-19 Clin Com Imaging Radiologist's Impressions: Impressions Chest CTA 10/29/21 05:45 IMPRESSION: 1. No pulmonary embolus identified. 2. Dilated pulmonary arteries, suspicious for pulmonary artery hypertension. 3. Coronary artery calcifications. Correlation with cardiac risk factors is recommended. VTE: negative Assessment and Plan (1) Chest pain: Qualifiers: Chest pain type: chest pain on breathing Qualified Code(s): R07.1 - Chest pain on breathing Status: Acute (2) Fever: Qualifiers: Fever type: unspecified Qualified Code(s): R50.9 - Fever, unspecified Status: Acute (3) Thrombocytopenia: Status: Acute Plan This is a 56 year old male with a PMH of HIV/Hep C (both untreated), active IVDU who presents to [facility] with complaints of pleuritic chest pain which has resolved. However the patient did have a low grade temp of 100.0 and with his active IVDU, there is a concern for bacteremia/endocarditis and hence he will be observed. 1. Low grade temp to rule out bacteremia -- if positive, will proceed with further work up empiric vancomcin/cefepime for now the patient does not have severe sepsis; his platelets and bilirubin are secondary to chronic liver disease (see #3). 2. Pleuritic chest pain Resolved CTA negative symptomatic mgmt 3. Suspected cirrhosis partially imaged on chest imaging will proceed with ultrasound of liver/gall bladder Likely secondary to Hep C (denies heavy EtOH use) 4. Hep C / HIV both are untreated will need outpatient follow up 5. Hyperbilirubinemia above his prior values -- ultrasound as above not due to severe sepsis 6. Thrombocytopenia due to #3 and not severe sepsis 7. Chronic opiate dependence continue methadone once dose verified Full Code DVT pptx -- mechanical due to significant thrombocytopenia Quality Stroke Does the patient have a stroke diagnosis?: No VTE Prior VTE?: No VTE Risk Level:: Medical - low VTE Device Contraindication: N/A - Device Ordered VTE Drug Contraindication: Treatment Not Tolerated
[2021-10-29 09:11] LABS: Lipase 14 U/L (8-78)
[2021-10-29 09:24] LABS: Troponin-I High Sensitivity 5.1 ng/L (<3.5-35.0)
[2021-10-29 10:48] LABS: Creatinine Clr Calc Pharmacy 119.8; Estimated Glomerular Filt Rate > 60
[2021-10-29] MEDS: Venlafaxine HCl ER 37.5 MG CAP.ER.24H PO (11:09)
[2021-10-29] MEDS: methADONE HCl 20 MG/2 ML ORAL.CONC 64 MG PO (11:09)
[2021-10-29] MEDS: nadoloL 20 MG TABLET PO (11:09)
--- NOTE | 2021-10-29 12:36 | PC.NURSE ---
Pt A&Ox4, sleeping but awakens to name. No complaints of pain at this time, NSR on monitor, aware of plan for obs admit to monitor cardiac concerns. Pt ambulates within room w/steady gait. Call koch within reach. Will continue to monitor.
[2021-10-29] MEDS: vancomycin HCL 1,250 MG in 0.9 % Sodium Chloride 250 ML 166.67 MG IV (17:14)
--- NOTE | 2021-10-29 18:34 | MHC.CM.PN ---
CM attempted to meet with patient x2 for discharge planning with aerial photograph interpreter, as pt is Croatian speaking. Pt sleeping soundly and did not respond to voice. CM will attempt again when pt wakes.
[2021-10-29] MEDS: ARIPiprazole 10 MG TABLET PO (20:19)
[2021-10-30 04:00] VITALS: BP 133/78; PULSE 58; RESP 16; O2SAT 95
[2021-10-30] MEDS: cefEPime HCl 2 GM in 0.9 % Sodium Chloride 50 ML IV ×2 (04:26→15:50)
[2021-10-30] MEDS: vancomycin HCL 1,250 MG in 0.9 % Sodium Chloride 250 ML 166.67 MG IV (04:28)
[2021-10-30 07:19] LABS: Hemoglobin 13.4 g/dl (14.0-18.0); Mean Corpuscular HGB Conc 34.4 g/dl (31.0-36.0); Mean Corpuscular Hemoglobin 32.6 pg (27.0-33.0); Mean Corpuscular Volume 94.9 fL (80.0-98.0); Mean Platelet Volume 12.5 fL (9.4-12.4); Red Blood Count 4.11 X10*6/uL (4.60-5.80); Red Cell Distribution Width 15.8 % (11.0-16.0); White Blood Count 4.1 X10*3/uL (4.8-10.8)
[2021-10-30 07:20] LABS: Platelet Count 55 X10*3/uL (160-400)
[2021-10-30 07:50] LABS: Creatinine Clr Calc Pharmacy 108.1; Estimated Glomerular Filt Rate > 60
[2021-10-30 07:54] LABS: Anion Gap 9 (12-20); Blood Urea Nitrogen 7 mg/dL (9-16); Carbon Dioxide 25 mmol/L (22-29); Chloride 105 mmol/L (96-108); Creatinine Clr Calc Pharmacy 106.7; Estimated Glomerular Filt Rate > 60; Glucose Random 78 mg/dL (60-115); Potassium 3.9 mmol/L (3.3-5.1); Sodium 135 mmol/L (135-145)
[2021-10-30 08:52] VITALS: BP 130/83; PULSE 60; RESP 12; O2SAT 94
--- NOTE | 2021-10-30 09:35 | HO.PM.IMPN ---
Subjective Subjective Date of Service: 10/30/21 Interval History: seen in f/u for chest pain, fever, back discomfort--not new intermittent Interval history: no chest pain Review of Systems no fever, no chest pain, c/o some back dis Physical Exam Vital Signs: Vital Signs: Last Vital Signs Temp 98.8 F 10/29/21 11:28 Pulse 60 10/30/21 08:52 Resp 12 10/30/21 08:52 BP 130/83 10/30/21 08:52 Pulse Ox 94 10/30/21 08:52 O2 Del Method 10/30/21 08:52 O2 Flow Rate 2 10/29/21 06:05 BMI result Body Mass Index 27.3 Const: Other: Constitutional - Awake and Alert, No apparent distress Eyes - PERRLA, EOMI Cardiovascular - S1S2, RRR, Respiratory - Normal lung expansion, Normal respiratory effort, No respiratory distress, CTA bilaterally Gastrointestinal - NT / ND; +BS; No rebound or guarding - No CVA tenderness Extremities - no calf tenderness bilaterally, minimal b/l LE edema Musculoskeletal - Normal inspection, normal ROM, no spot tenderness... Skin - Warm/Dry, track beach b/l UE Neurological - Alert & oriented x3, No focal deficit Psychological - Appropriate affect Objective Data Active Medications Acetaminophen (Acetaminophen 325 Mg Tablet) 650 mg PO Q6H PRN PRN Reason: Pain, Mild (Pain Scale 1-3) Aripiprazole (Aripiprazole 10 Mg Tablet) 10 mg PO BEDTIME [facility] Last Admin: 10/29/21 20:19 Dose: 10 mg Documented By: DANIEL Vancomycin HCl 1,250 mg/ (Sodium Chloride) 250 mls @ 166.667 mls/hr IV Q12H [facility] Last Infusion: 10/30/21 06:21 Dose: 0 mls/hr Documented By: FELIPE Cefepime HCl 2 gm/ Sodium (Chloride) 50 mls @ 100 mls/hr IV Q12H [facility] Last Infusion: 10/30/21 04:57 Dose: 0 mls/hr Documented By: FELIPE Methadone HCl (Methadone Hcl 20 Mg/2 Ml Oral.Conc) 64 mg PO DAILY [facility] Last Admin: 10/29/21 11:09 Dose: 64 mg Documented By: BEAR Nadolol (Nadolol 20 Mg Tablet) 20 mg PO DAILY [facility]; Protocol Last Admin: 10/29/21 11:09 Dose: 20 mg Documented By: BEAR Ondansetron HCl (Ondansetron Hcl 4 Mg/2 Ml Vial) 4 mg IVPUSH Q8H PRN PRN Reason: Nausea and Vomiting Pharmacy Consult (Consult Rx Vancomycin Dosing) 1 each MISCELLANE DAILY PRN PRN Reason: Consult order Pharmacy Consult (Consult Rx Perform Med Rec) 1 each MISCELLANE ONCE PRN PRN Reason: Consult order Trazodone HCl (Trazodone Hcl 50 Mg Tablet) 50 mg PO BEDTIME PRN PRN Reason: Sleep Venlafaxine HCl (Venlafaxine Hcl Er 37.5 Mg Cap.Er.24h) 37.5 mg PO DAILY [facility] Last Admin: 10/29/21 11:09 Dose: 37.5 mg Documented By: BEAR Labs CBC & Chem 7: 10/30/21 06:36 10/30/21 06:36 Labs: Laboratory Results - last 24 hr 10/29/21 10/30/21 10/30/21 09:56 06:36 06:36 MCV 94.9 MCH 32.6 MCHC 34.4 RDW 15.8 Plt Count 55 L MPV 12.5 H Absolute Nucleated RBC 0.000 Nucleated RBC % (auto) 0.0 Anion Gap Estim Creat Clear Calc 119.8 108.1 Estimated GFR > 60 > 60 Random Glucose Calcium 10/30/21 06:36 MCV MCH MCHC RDW Plt Count MPV Absolute Nucleated RBC Nucleated RBC % (auto) Anion Gap 9 L Estim Creat Clear Calc 106.7 Estimated GFR > 60 Random Glucose 78 Calcium 8.0 L Microbiology Microbiology Results: Microbiology 10/29/21 03:53 Blood Culture - Preliminary Blood - Venous No growth after 24 hours. 10/29/21 03:26 Blood Culture - Preliminary Blood - Venous No growth after 24 hours. 10/29/21 03:26 Blood Culture - Preliminary Blood - Venous No growth after 24 hours. Assessment and Plan (1) Chest pain: Status: Acute (2) Fever: Status: Acute Plan This is a 56 year old male with a PMH of HIV/Hep C (both untreated), active IVDU who presents to [facility] with complaints of pleuritic chest pain which has resolved. However the patient did have a low grade temp of 100.0 and with his active IVDU, there is a concern for bacteremia/endocarditis and hence he will be observed. 1. Low grade temp to rule out bacteremia -- if positive, will proceed with further work up empiric vancomcin/cefepime for now until BCx negative at 46 the patient does not have severe sepsis; his platelets and bilirubin are secondary to chronic liver disease (see #3). 2. Pleuritic chest pain Resolved CTA negative symptomatic mgmt 3. Suspected cirrhosis partially imaged on chest imaging will proceed with ultrasound of liver/gall bladder Likely secondary to Hep C (denies heavy EtOH use) 4. Hep C / HIV both are untreated will need outpatient follow up 5. Hyperbilirubinemia above his prior values -- ultrasound as above not due to severe sepsis 6. Thrombocytopenia due to #3 and not severe sepsis 7. Chronic opiate dependence continue methadone once dose verified 8. Back pain, chronic without neurological features, Full Code DVT pptx -- mechanical due to significant thrombocytopenia Quality Stroke Does the patient have a stroke diagnosis?: No VTE Prior VTE?: No VTE Risk Level:: Medical - low VTE Device Contraindication: N/A - Device Ordered VTE Drug Contraindication: Treatment Not Tolerated
[2021-10-30] MEDS: methADONE HCl 20 MG/2 ML ORAL.CONC 64 MG PO (09:37)
[2021-10-30] MEDS: Venlafaxine HCl ER 37.5 MG CAP.ER.24H PO (09:39)
[2021-10-30] MEDS: nadoloL 20 MG TABLET PO (09:39)
--- NOTE | 2021-10-30 10:34 | HE.PHANOTE ---
Vancomycin Dosing Addendum Vancomycin trough scheduled for today at 1400. continue with current regimen for now,
[2021-10-30 12:34] VITALS: BP 129/84; PULSE 59; RESP 12; O2SAT 95
--- NOTE | 2021-10-30 14:15 | MHC.CM.PN ---
PT REPORTS HE LIVES WITH HIS SISTER AND IS INDEPENDENT WITH CARE PT DENIES USE OF DME OR HOME SERVICES PT REPORTS HE IS UNSURE IF HE HAS A HCP BUT DECLINES TO COMPLETE ONE TODAY PT REPORTS HE SEES A PROVIDER AT [facility] FOR PRIMARY CARE PT REPORTS HE IS COVID VACCINATED BUT HAS NO DETAILS OBSERVATION NOTICE DELIVERED, COPY SENT TO [facility] CURRENT DC PLAN IS HOME WITH NO SERVICES SISTER TO TRANSPORT (SHE IS IN [facility] UNTIL TOMORROW THOUGH)
--- NOTE | 2021-10-30 14:28 | PC.NURSE ---
Pt alert and oriented to self, time, place and situation. Denies Cp at this assessment, states this symptom has since resolved. Lungs clear, semi diminished in bases. +bs x 4, abd soft round non tender, reports BM are regular. NO tympanic sounds noted. Afebrile this shift up to the time of this note. Reports chronic low back pain with pain level 7/10 prior to am medications, remains level 5/10 since. States best pain level is 3-4/10. Skin appears intact, no noted edema. On room air, NSR on tele monitor.
[2021-10-30 14:32] LABS: Vancomycin Trough 11.6 mcg/mL (10.0-20.0)
[2021-10-30 16:24] VITALS: BP 123/84; PULSE 62; RESP 17; O2SAT 95
[2021-10-30] MEDS: vancomycin HCL 1,500 MG in 0.9 % Sodium Chloride 500 ML 333.33 MG IV (16:29)
[2021-10-30 19:20] VITALS: BMI 28.0
[2021-10-30 19:50] VITALS: BP 146/89; PULSE 62; RESP 20; TEMP 36.9; O2SAT 94
[2021-10-30] MEDS: ARIPiprazole 10 MG TABLET PO (20:23)
[2021-10-30] MEDS: traZODone HCL 50 MG TABLET PO (20:23)
[2021-10-31] VITALS: BP 105/63; PULSE 57; RESP 20; TEMP 36.3; O2SAT 96
[2021-10-31 03:34] VITALS: BP 123/78; PULSE 78; RESP 20; TEMP 37; O2SAT 93
[2021-10-31] MEDS: cefEPime HCl 2 GM in 0.9 % Sodium Chloride 50 ML IV (03:55)
[2021-10-31] MEDS: vancomycin HCL 1,500 MG in 0.9 % Sodium Chloride 500 ML 333.33 MG IV (04:52)
[2021-10-31 07:01] LABS: Creatinine Clr Calc Pharmacy 119.4; Estimated Glomerular Filt Rate > 60
[2021-10-31 07:24] VITALS: BP 112/70; PULSE 56; RESP 20; O2SAT 93
[2021-10-31] MEDS: methADONE HCl 20 MG/2 ML ORAL.CONC 64 MG PO (09:24)
[2021-10-31] MEDS: nadoloL 20 MG TABLET PO (09:24)
[2021-10-31] MEDS: Venlafaxine HCl ER 37.5 MG CAP.ER.24H PO (09:24)
--- NOTE | 2021-10-31 09:58 | P.DS_ITS ---
DS: Providers Provider Date of Service: 10/31/21 Date of admission: 10/29/21 08:52 Primary care physician: Unknown Physician DS: Diagnosis Discharge Diagnosis (1) Chest pain: Status: Acute (2) Fever: Status: Acute DS: Summary Hospital Course Hospital Course: Chief Complaint: Chest pain This is a 56 year old male with a PMH of HIV (not on HAART), Hep C (untreated), active IVDU (reports last in the days prior to admission), who presented to [facility] [place] [facility] with complaints of chest pain which began the day prior to admission. He describes the pain as pleuritic in nature (worsening with inspiration), severe in intensity (7-10/10), sharp, on the L sided and non-radiating. He reports no associated shortness of breath or cough. He reports chills but denies fevers. He also reports leg swelling which he noticed on the day prior to admission as well. He reports being on methadone. Work up in the ED routine labs and CTA chest which is negative for PE (see full details below). Noted thrombocytopenia which is chronic and hyperbilirubinemia, worsened that prior values. He had a low grade temp of 100.0. He has been given IV vancomyin/cefepime and admission has been requested. The patient reports that his chest pain is resolved at the time of admission. Hospital course: Patient presented with chest pain that was atypical in nauture and work was noted to have a temp of 100. He was started on empiric Cefepime and Vancomycin and kept in the hospital for observation. As for chest pain this resolved, troponin was negative x 2, ECG no acute ischemic changes and CTA of chest showed no PE or PNA. for a single episode of low grade temp of 100. Blood cultures have been negative x 48 hours, no sings of infection no further fever and therefore will discontinued Abx, no urinary or stool incontinence. He did c/o some back pain which is said not new and probably from lying down, has no tenderness on exam, normal neuro exam and infact pain is now nearly all gone and therefore will not pursuit additiaonl testing at this time, unless the nature of the pain change and his comfortable with the plan a th Time Spent with Patient Time attestation: Total time spent providing and/or coordinating discharge services: Discharge coordination time: Greater than 30 minutes Quality: Safe Use of Opioids Does Pt have an Active Cancer Diagnosis on the Problem List?: No Quality: Stroke Does the patient have a stroke diagnosis?: No Physical Exam Vital Signs: Vital Signs: Last Vital Signs Temp 98.6 F 10/31/21 03:34 Pulse 56 10/31/21 07:24 Resp 20 10/31/21 07:24 BP 112/70 10/31/21 07:24 Pulse Ox 93 10/31/21 07:24 O2 Del Method 10/31/21 07:24 O2 Flow Rate 2 10/29/21 06:05 BMI result Body Mass Index 28.0 Const: Other: General: AO X 3, no acute distress Resp: CTA bilateral CVS: S1,S2,RRR GI: +BS, NT, no distention Skin: No rash Neuro: motor grossly intact, normal range of motion, no numbness, Psych: appropriate affect DS: Data Data Completed and Pending Labs on day of discharge: Laboratory Results - last 24 hr 10/30/21 10/31/21 14:01 05:53 Creatinine 0.71 Estim Creat Clear Calc 119.4 Estimated GFR > 60 Vancomycin Trough 11.6 Preliminary micro results at discharge 10/29/21 03:53 Blood Culture - Preliminary Blood - Venous No growth after 48 hours. 10/29/21 03:26 Blood Culture - Preliminary Blood - Venous No growth after 48 hours. 10/29/21 03:26 Blood Culture - Preliminary Blood - Venous No growth after 48 hours. Discharge Plan Discharge Anticipated Discharge Date/Time: 10/31/21 09:52 Patient Disposition: Home, Self-Care Discharge Diagnosis: Chest pain Referrals: Physician,Unknown J [Primary Care Provider] - 1 Week Discharge Medications: Continued venlafaxine 37.5 mg capsule,extended release 24hr 1 cap PO DAILY trazodone 50 mg tablet 1 tab PO BEDTIME PRN (Reason: Sleep) nadolol 20 mg tablet 1 tab PO DAILY methadone 10 mg/mL Concentrate 64 mg PO DAILY Rx Instructions: verified with clinic-see note. JOEY on [facility] [phone] aripiprazole 10 mg tablet 1 tab PO BEDTIME Discharge Orders: Discharge Order (Routine); Ordered 10/31/21 Ordered By: Tulio Chacon Diet: Advance to usual diet Activity on Discharge: As tolerated Stand Alone Forms: Patient Portal Discharge page Care Plan Goals: Full recovery from chest pain Health Concerns: chest pain, fever that has now resolved Plan of Treatment: reassures and to follow up with PCP in a week Assessment: as above
--- NOTE | 2021-10-31 10:11 | MHC.CM.PN ---
Patient has been medically cleared for dc to home today, self care.
--- NOTE | 2021-10-31 11:10 | MHC.CM.PN ---
order for home, self care, CM acknowledged. Patient indicates he is unable to get in to his home at this time; his room mates are out of state and he does not have dooley. This CM discussed bus pass to [facility] where he could beaming inspector line for a place to sleep until his room mates return. Patient in agreement; nurse animal husbandry manager and direct care nurse also aware and also in agreement. Bus pass given to patient w/instructions on how to use as well as review of D/C plan. Patient in acknowledged and in agreement.
[2021-10-31 11:25] VITALS: BP 129/86; PULSE 56; RESP 18; TEMP 36.2; O2SAT 96
--- NOTE | 2021-10-31 12:20 | MHC.CM.PN ---
Nurse approached indicating patient attempted calling [employer] bus to inquire RE bus times for the half-way; patient informed buses do not run on Sundays. Nurse indicates she will report back to nurse senior quality manager. Patient D/C may have to be delayed until Monday am. CM to follow.
== END 2021-10-31 12:46 | disposition home or self-care (01) ==
LOC: HO.ED 06:33 → HO.EDOVER 09:00 → HO.IMC 10-30 17:17
PROVIDERS: Emergency Medicine; Admitting Provider Family Medicine; Emergency Provider Student in an Organized Health Care Education/Training Program; Visit Provider Internal Medicine
DX: R07.1 Chest pain on breathing (principal); R07.89 Other chest pain; D69.6 Thrombocytopenia, unspecified; R50.9 Fever, unspecified; R06.02 Shortness of breath; F11.10 Opioid abuse, uncomplicated; E87.2 Acidosis; R79.89 Other specified abnormal findings of blood chemistry; R60.0 Localized edema; E80.6 Other disorders of bilirubin metabolism; M79.605 Pain in left leg; M79.604 Pain in right leg; F17.200 Nicotine dependence, unspecified, uncomplicated; Z71.6 Tobacco abuse counseling; Z20.822 Contact with and (suspected) exposure to COVID-19; Z79.899 Other long term (current) drug therapy
CPT/HCPCS: 36415; 71275; 76705; 80048; 80076; 80202; 80307; 81003; 82550; 82565; 83605; 83690; 83735; 83880; 84145; 84484; 85025; 85027; 85610; 85730; 86140; 87040; 87635; 93005; 96365; 96366; 96367; 96375; 96376; 99219; 99285; J0692; J3370; Q9967

== ENCOUNTER 2022-01-11 03:57 | Inpatient (IN) | payer MEDICAID, SELFPAY ==
[2022-01-11] VITALS (8 sets, daily range): BP systolic 130–140; BP diastolic 76–89; PULSE 72–96; RESP 12–20; TEMP 36.4–37.1; O2SAT 94–96; BMI 25.8
--- NOTE | ~2022-01-11 | US_ITS ---
EXAMINATION: US ABDOMEN LIMITED CLINICAL INFORMATION: Right upper quadrant pain. COMPARISON: None TECHNIQUE: Real-time imaging of the right upper quadrant abdominal viscera. FINDINGS: PANCREAS: The visualized portion of the pancreas head and body are normal, portion of the pancreatic body and tail, not visualized are obscured by bowel gas. LIVER: Liver is borderline enlarged 18.5 cm, lobulated border concerning for liver parenchymal disease possibly liver cirrhosis. There is mild intrahepatic biliary dilatation. No focal hepatic lesion. GALLBLADDER: Echogenic material within the gallbladder probably echogenic bile and/or gravel small stones. Small amount of pericholecystic fluid, borderline thickening of gallbladder wall measuring 3 mm, tenderness reported by the technologist pressing on the gallbladder, combined raising concern for possible cholecystitis. COMMON BILE DUCT: Normal in caliber measuring 0.9 cm in diameter. RIGHT KIDNEY: Normal. No hydronephrosis. No renal calculi or focal parenchymal lesions. The kidney measures 12 cm in maximum dimension. FREE FLUID: None. US/US abdomen limited IMPRESSION: Mild thickening of gallbladder wall combined with tiny gallstones and minimal pericholecystic fluid, tenderness reported pressing on the gallbladder, combined raising concern for possible CHOLECYSTITIS. Surgical evaluation recommended, may consider correlation with HIDA scan. CBD is dilated 9 mm. Mild intrahepatic biliary dilatation. Enlarged liver with lobular surface suggesting liver parenchymal disease probably liver cirrhosis. (Referring physician staff is being called, to be alerted of the above findings and recommendations.) SS
--- NOTE | ~2022-01-11 | NM_ITS ---
EXAMINATION: NUCLEAR MEDICINE HEPATOBILIARY SCAN WITHOUT PHARMACY. CLINICAL INFORMATION: Right upper quadrant pain. Elevated LFTs. COMPARISON: Ultrasound abdomen limited 01/11/2022 TECHNIQUE: 5 mCi of 90 M technetium mebrofenin, imaging over the right upper quadrant was obtained up to 2 hours. Exam was stopped at 2 hours. FINDINGS: There is normal hepatic uptake without any focal defect. Common bile duct is visualized approximately by 34 minutes. Gallbladder is visualized by 42 minutes. Small bowel is visualized around 42 minutes. NM/NM hepatobiliary wo pharm IMPRESSION: Normal hepatic uptake. Patency CBD and cystic duct.
--- NOTE | ~2022-01-11 | MR_ITS ---
EXAMINATION: MR ABDOMEN WITHOUT CONTRAST CLINICAL INFORMATION: Abdominal pain. Dilated common bile duct. COMPARISON: Previous CT of the abdomen and pelvis, limited abdominal ultrasound and nuclear medicine scan from earlier the same day TECHNIQUE: MR abdomen is performed without gadolinium contrast. MRCP sequences were also performed. FINDINGS: LUNG BASES: The visualized lung bases are unremarkable. LIVER, GALLBLADDER, AND BILIARY TREE: The liver is cirrhotic. There is a 1 cm lesion exophytic to the medial segment of the left lobe of the liver near the falciform ligament probably representing a small cyst. No other focal liver lesion. The gallbladder is upper normal in size. There is sludge in the gallbladder. No definite gallstones are seen. There is mild intra and extrahepatic biliary duct dilatation. The common bile duct measures up to 1 cm. No common bile duct stone is seen. PANCREAS: There is a 1 cm simple appearing cyst in the uncinate process of the head of the pancreas. The pancreas is otherwise normal. The main pancreatic duct does not appear dilated. SPLEEN: Spleen is enlarged and measures 14 cm in length. ADRENAL GLANDS: Unremarkable. KIDNEYS AND URETERS: The kidneys are normal in size and shape. No hydronephrosis. No perinephric stranding. GASTROINTESTINAL TRACT: No bowel obstruction. No ascites or fluid collection. ABDOMINAL WALL: No significant hernia is appreciated. LYMPH NODES: No lymphadenopathy. VASCULAR: Upper abdominal varices. No ascites. OSSEOUS STRUCTURES: Marrow signal normal. MR/MR MRCP IMPRESSION: Cirrhotic-appearing liver. 1 cm probable cyst adjacent to the medial segment of the left lobe of the liver. Varices. Upper normal-size gallbladder and sludge. No definite stone seen. Mild extrahepatic biliary duct dilatation, common bile duct measuring 9 to 10 mm. No common bile duct stone seen. 1 cm cyst in the uncinate process of the head of the pancreas. Annual MR CT imaging in one year recommended. Enlarged spleen. No ascites.
--- NOTE | ~2022-01-11 | CT_ITS ---
EXAMINATION: CT ABDOMEN AND PELVIS WITHOUT CONTRAST CLINICAL INFORMATION: Right upper quadrant pain COMPARISON: 08/25/2012 TECHNIQUE: Multidetector volumetric imaging was performed from the superior aspect of the liver through the pubic symphysis. Sagittal and coronal reformatted images were obtained on the technologist's workstation. This CT examination was performed using dose optimization techniques as appropriate, variously including the following: *Automated exposure control *Adjustment of mA and/or kV according to patient size (this includes techniques or standardized protocols for targeted exams where dose is matched to indication/reason for exam; i.e. extremities or head) *Use of iterative reconstruction technique DLP: 536 mGy-cm FINDINGS: LUNG BASES: The visualized lung bases are unremarkable. LIVER, GALLBLADDER, AND BILIARY TREE: Normal size of the liver with a diffusely nodular Contour. Normal attenuation. No focal liver lesion identified. No biliary ductal dilatation. The gallbladder is unremarkable with no evidence of radiopaque gallstones, gallbladder wall thickening, or obvious pericholecystic inflammatory changes. PANCREAS: Unremarkable. SPLEEN: The spleen is enlarged. The spleen measures 14.5 cm in CC dimension. No focal lesion. ADRENAL GLANDS: Unremarkable. KIDNEYS AND URETERS: The kidneys are normal in size, shape, and attenuation. No hydronephrosis, hydroureter, or calculi seen. No perinephric stranding. Vascular calcifications noted. BLADDER: Unremarkable. GASTROINTESTINAL TRACT: The stomach is unremarkable. Normal caliber small bowel. No obstruction. No colonic wall thickening or acute inflammation. No free air or free fluid. Normal appendix. ABDOMINAL WALL: No significant hernia is appreciated. LYMPH NODES: Normal. VASCULAR: Normal caliber aorta with mild atherosclerotic vascular calcification. PELVIC VISCERA: The prostate and seminal vesicles are unremarkable. OSSEOUS STRUCTURES: No acute or suspicious osseous abnormality. CT/CT abdomen pelvis wo IV con IMPRESSION: 1. Cirrhotic liver. Splenomegaly. No ascites. 2. No acute findings in the abdomen or pelvis. No inflammatory changes. Fleischner guidelines were followed.
[2022-01-11 04:28] LABS: Hematocrit 36.6 % (42.0-52.0); Hemoglobin 12.5 g/dl (14.0-18.0); Mean Corpuscular HGB Conc 34.2 g/dl (31.0-36.0); Mean Corpuscular Hemoglobin 33.1 pg (27.0-33.0); Mean Corpuscular Volume 96.8 fL (80.0-98.0); Mean Platelet Volume 12.5 fL (9.4-12.4); Red Blood Count 3.78 X10*6/uL (4.60-5.80); Red Cell Distribution Width 16.9 % (11.0-16.0); White Blood Count 4.1 X10*3/uL (4.8-10.8)
[2022-01-11 04:31] LABS: Platelet Count 73 X10*3/uL (160-400)
--- NOTE | 2022-01-11 04:31 | ED_ITS ---
HPI - Abdominal Pain General Chief Complaint: Abdominal Pain Stated Complaint: Swollen legs/Liver issues Time Seen by Provider: 01/11/22 04:26 Source: patient Mode of arrival: ambulatory Limitations: no limitations History of Present Illness HPI narrative: Patient comes to the emergency room complaining of right upper quadrant pain for 2 days. Patient states that he has been drinking alcohol, last time he drank alcohol was almost 24 hours ago. Patient denies fever chills, complaining of nausea vomiting, no diarrhea, no melena. Related Data Home Medications Medication Instructions Recorded Confirmed aripiprazole 10 mg tablet 1 tab PO BEDTIME 10/29/21 10/29/21 methadone 10 mg/mL oral concentrate 63 mg PO DAILY 10/29/21 01/11/22 nadolol 20 mg tablet 1 tab PO DAILY 10/29/21 10/29/21 trazodone 50 mg tablet 1 tab PO BEDTIME PRN Sleep 10/29/21 10/29/21 venlafaxine 37.5 mg 1 cap PO DAILY 10/29/21 10/29/21 capsule,extended release 24 hr Allergies Allergy/AdvReac Type Severity Reaction Status Date / Time No Known Allergies Allergy Mild NOT Unverified 11/07/19 15:45 APPLICABLE Review of Systems Review of Systems Constitutional : No Weight loss, No Fever, No Chills, No Night Sweats, No Fatigue, No Malaise ENT/Mouth : No Hearing loss, No Ear Pain, No Nasal Congestion, No Sinus Pain, No Hoarseness, No sore throat, No Rhinorrhea, No Swallowing Difficulty Eyes: No Eye Pain, No Swelling, No Redness, No Foreign Body, No Discharge, No Vision Changes Cardiovascular : No Chest Pain, No SOB, No Dyspnea on Exertion, No Orthopnea, No Edema, No Palpitations Respiratory : No Cough, No Sputum, No Wheezing, No Smoke Exposure, No Dyspnea Gastrointestinal : Complaining of nausea vomiting No Diarrhea, No Constipation, complaining of abdominal distension and right upper quadrant pain, constant, nonradiating Genitourinary : no irregular bleeding, No Dysuria, No Urinary Frequency, No Hematuria, No Urinary Incontinence, No Urgency, No Flank Pain, No Urinary Flow Changes, No Hesitancy Musculoskeletal : No joint pain, No Myalgias, No Joint Swelling Skin : No Skin Lesions, No rash Neuro : No Weakness, No Numbness, No Paresthesias, No Loss of Consciousness, No Dizziness, No Headache Psych : No Anxiety/Panic, No Depression, No SI/HI/AH/VH, No Social Issues, Heme/Lymph: No Bruising, No Bleeding,No Lymphadenopathy Endocrine : No Polyuria, No Polydipsia, No Temperature Intolerance PMF Past Medical History Medical History Elevated LFTs Hepatitis C HIV (human immunodeficiency virus infection) Intravenous drug abuse Thrombocytopenia Surgical History H/O lymph node biopsy Social History Social History (Updated 10/29/21 @ 09:54 by Abelino Flanagan MD) Alcohol intake: current Alcohol intake frequency: a few times a month Patient Tobacco Use Status: Current everyday Tobacco user Tobacco use type: Cigarette Cigarettes Per Day: 2 Substance Use Type: Heroin Advance Directives: No service: No Current occupational status: unemployed Physical Exam ED Vital Signs: Vital Signs - 24 hr 01/11/22 04:12 01/11/22 05:12 01/11/22 06:00 Temperature 97.6 F 98.3 F Pulse Rate 94 96 84 Respiratory Rate 20 16 16 Blood Pressure 134/81 137/89 135/89 Pulse Oximetry 95 95 Oxygen Delivery Method Room Air Room Air Room Air Oxygen Flow Rate 97 BMI result Body Mass Index 25.8 Const Other: Appearance: Alert. Oriented X3. No acute distress. Eyes: Pupils equal, round and reactive to light. Scleral icterus ENT: Pharynx normal. Neck: Normal inspection. Neck supple. No lymph nodes noted. No crepitus CVS: Normal heart rate and rhythm. Pulses normal. Normal S1 and S2 Respiratory: No respiratory distress. Breath sounds normal. No Wheezing. No rales Abdomen: Soft, distended, tenderness to palpation over the right upper quadrant, the liver seems to be enlarged, on bedside abdominal ultrasound, there is ascites, but there is no other distinctive pocket of fluid were I could possibly do a paracentesis Skin: Skin warm and dry. Present icterus Extremities: No lower extremity edema. No Lacerations. No Rash Neuro: Oriented X 3. No motor deficit. No sensory deficit. Moving all extremit ies. No slurred speech. CN 2 through 12 grossly intact Psych: calm, cooperative, normal affect Course Course Course Narrative: Patient states that in the past, he has refused treatment for HIV and hepatitis. However, patient has been feeling very weak, gradually feeling worse. Patient states that at this time, he is willing to get treatment. Viral load for hepatitis-C in for HIV will be ordered, patient has given verbal consent. CT scan of abdomen pending CT scan shows a cirrhotic liver, splenomegaly, no ascites, patient still complaining of significant right upper quadrant pain. Ultrasound shows mild thickening of the gallbladder combine with tiny gallstones and minimal pericholecystic fluid, positive Peter sign, CBD dilated 9 mm, possible cholecystitis I discussed the patient with Dr. Jean-Baptiste and with Dr. Hernández, we'll get a HIDA scan, then Dr. Hernández will decide if pt needs a MRCP pt needs to be admitted by surgery vs medicine, to be determined sign out given to dr. Chin Medications Administered Discontinued Medications Generic Name Dose Route Start Last Admin Trade Name Freq PRN Reason Stop Dose Admin Methadone HCl 65 mg 01/11/22 06:01 01/11/22 07:45 Methadone Hcl 20 Mg/2 Ml Oral.Conc PO 01/11/22 06:02 65 mg ONCE ONE Administration MDM - Abdominal Pain Lab Data Result diagrams: 01/11/22 04:21 01/11/22 04:21 Labs: Lab Results 01/11/22 01/11/22 01/11/22 Range/Units 04:21 04:21 04:21 WBC 4.1 L (4.8-10.8) X10*3/uL RBC 3.78 L (4.60-5.80) X10*6/uL Hgb 12.5 L (14.0-18.0) g/dl Hct 36.6 L (42.0-52.0) % MCV 96.8 (80.0-98.0) fL MCH 33.1 H (27.0-33.0) pg MCHC 34.2 (31.0-36.0) g/dl RDW 16.9 H (11.0-16.0) % Plt Count 73 L D (160-400) X10*3/uL MPV 12.5 H (9.4-12.4) fL Absolute Nucleated RBC 0.000 (0.0-0.012) X10*3/uL Nucleated RBC % (auto) 0.0 (0.0-0.2) /100WBC Sodium 137 (135-145) mmol/L Potassium 3.7 (3.3-5.1) mmol/L Chloride 107 (96-108) mmol/L Carbon Dioxide 23 (22-29) mmol/L Anion Gap 11 L (12-20) BUN 7 L (9-16) mg/dL Creatinine 0.71 (0.5-1.4) mg/dL Estim Creat Clear Calc 109.7 Estimated GFR > 60 Random Glucose 96 (60-115) mg/dL Calcium 8.1 L (8.4-10.2) mg/dL Total Bilirubin 5.0 H (0.0-1.0) mg/dL Direct Bilirubin 2.8 H (0.0-0.5) mg/dL AST 170 H (5-37) U/L ALT 70 H (0-40) U/L Alkaline Phosphatase 163 H (39-117) U/L B-Natriuretic Peptide 95 (<100) pg/mL Total Protein 8.5 H (6.5-8.0) g/dL Albumin 2.6 L (3.5-5.0) g/dL Lipase 35 (8-78) U/L Urine Color Urine Appearance Urine pH (5.0-9.0) Ur Specific [place] (1.005-1.025) Urine Protein (Neg-Trace) mg/dL Urine Glucose (UA) (Negative) mg/dL Urine Ketones (Negative) mg/dL Urine Blood (Negative) Urine Nitrite (Negative) Ur Leukocyte Esterase (Negative) Urine RBC (0-2) /HPF Urine WBC (0-5) /HPF Ur Squamous Epith Cells (0-2) /HPF Urine Bacteria (None Seen) Hyaline Casts (0-2) /LPF Ethyl Alcohol 50 mg/dL HIV-1 RNA copies/mL HIV-1 RNA logcopies/mL 01/11/22 01/11/22 Range/Units 04:59 04:59 WBC (4.8-10.8) X10*3/uL RBC (4.60-5.80) X10*6/uL Hgb (14.0-18.0) g/dl Hct (42.0-52.0) % MCV (80.0-98.0) fL MCH (27.0-33.0) pg MCHC (31.0-36.0) g/dl RDW (11.0-16.0) % Plt Count (160-400) X10*3/uL MPV (9.4-12.4) fL Absolute Nucleated RBC (0.0-0.012) X10*3/uL Nucleated RBC % (auto) (0.0-0.2) /100WBC Sodium (135-145) mmol/L Potassium (3.3-5.1) mmol/L Chloride (96-108) mmol/L Carbon Dioxide (22-29) mmol/L Anion Gap (12-20) BUN (9-16) mg/dL Creatinine (0.5-1.4) mg/dL Estim Creat Clear Calc Estimated GFR Random Glucose (60-115) mg/dL Calcium (8.4-10.2) mg/dL Total Bilirubin (0.0-1.0) mg/dL Direct Bilirubin (0.0-0.5) mg/dL AST (5-37) U/L ALT (0-40) U/L Alkaline Phosphatase (39-117) U/L B-Natriuretic Peptide (<100) pg/mL Total Protein (6.5-8.0) g/dL Albumin (3.5-5.0) g/dL Lipase (8-78) U/L Urine Color Dark Yellow Urine Appearance Clear Urine pH 6.5 (5.0-9.0) Ur Specific [place] 1.015 (1.005-1.025) Urine Protein Negative (Neg-Trace) mg/dL Urine Glucose (UA) Negative (Negative) mg/dL Urine Ketones Negative (Negative) mg/dL Urine Blood Negative (Negative) Urine Nitrite Negative (Negative) Ur Leukocyte Esterase Trace H (Negative) Urine RBC 0-2 (0-2) /HPF Urine WBC 0-5 (0-5) /HPF Ur Squamous Epith Cells 0-2 (0-2) /HPF Urine Bacteria None Seen (None Seen) Hyaline Casts 0-2 (0-2) /LPF Ethyl Alcohol mg/dL HIV-1 RNA copies/mL Cancelled HIV-1 RNA logcopies/mL Cancelled Critical Care Time Critical Care Time Critical Care Time: Yes Total Critical Care Time: 50 Attestation: I have personally provided critical care time. Time includes review of lab data, radiology results, discussion with consultants, and monitoring for potential decompensation. Intervention performed as documented. Discharge Plan Discharge Clinical Impression: Right upper quadrant abdominal pain, Elevated LFTs Patient Disposition: Still a Patient Prescriptions: No Action venlafaxine 37.5 mg capsule,extended release 24hr 1 cap PO DAILY trazodone 50 mg tablet 1 tab PO BEDTIME PRN (Reason: Sleep) nadolol 20 mg tablet 1 tab PO DAILY methadone 10 mg/mL Concentrate 63 mg PO DAILY Rx Instructions: verified with clinic-see note. JOEY on [facility] [phone] aripiprazole 10 mg tablet 1 tab PO BEDTIME
[2022-01-11 04:50] LABS: Alanine Aminotransferase 70 U/L (0-40); Albumin Level 2.6 g/dL (3.5-5.0); Alkaline Phosphatase 163 U/L (39-117); Anion Gap 11 (12-20); Aspartate Amino Transferase 170 U/L (5-37); Bilirubin Direct 2.8 mg/dL (0.0-0.5); Blood Urea Nitrogen 7 mg/dL (9-16); Calcium 8.1 mg/dL (8.4-10.2); Carbon Dioxide 23 mmol/L (22-29); Chloride 107 mmol/L (96-108); Creatinine Clr Calc Pharmacy 109.7; Estimated Glomerular Filt Rate > 60; Ethanol 50 mg/dL; Glucose Random 96 mg/dL (60-115); Lipase 35 U/L (8-78); Potassium 3.7 mmol/L (3.3-5.1); Sodium 137 mmol/L (135-145); Total Protein 8.5 g/dL (6.5-8.0)
[2022-01-11 04:53] LABS: B Type Natriuretic Peptide 95 pg/mL (<100)
[2022-01-11 05:12] LABS: Appearance Urine Clear; Color Urine Dark Yellow; Glucose Urine UA Negative (Negative); Leukocyte Esterase Urine Trace (Negative); Nitrite Urine Negative (Negative); PH 6.5 (5.0-9.0); Specific Gravity - Urine 1.015 (1.005-1.025); UMIC TRIGGER UA YES; Urine Blood Negative (Negative); Urine Ketones Negative (Negative); Urine Protein Negative (Neg-Trace)
[2022-01-11 05:17] LABS: Bacteria Urine None Seen (None Seen); Hyaline Casts Urine 0-2 /LPF (0-2); RBC Urine 0-2 /HPF (0-2); Squamous Epithelial Cell Urine 0-2 /HPF (0-2); WBC Urine 0-5 /HPF (0-5)
--- OUTSIDE RECORDS SUMMARY | 2022-01-11 05:21 | XMS_ITS | Continuity of Care Document ---
:1965 Author Organization [facility] Address [address] [place] [id number]- Care Team Providers Name Role Phone Patricia Owen MD Primary Care Physician [phone] Encounter [facility] [place] Date(s): 11/12/20 - 12/12/20 [facility] [address] [place] [id number] Attending Physician: Betito Signh Admitting Physician: Admtr, Betito Referring Physician: Admtr, Ar8 Allergies, Adverse Reactions, Alerts Substance Reaction Severity Status NKA Active Immunizations Given and Recorded Vaccine Date Status Refusal Reason influenza virus vaccine, inactivated 11/26/17 Given influenza virus vaccine, inactivated 05/15/17 Given pneumococcal 23-valent vaccine 05/15/17 Given tetanus-diphtheria toxoids (Td) 09/25/09 Given Medications Bactrim DS Tablet 1, tablet, By Mouth, Daily, Maintenance, 05/05/20 8:22:00 EDT Start Date: 05/05/20 Status: Orderedbictegravir/emtricitabine/tenofovir 1 tablet, By Mouth, Daily, 0 Refills, Maintenance, 05/05/20 8:21:00 EDT, Tablet, Partial fill upon patient request if the prescription is for a schedule II opioid drug. Start Date: 05/05/20 Status: Orderedfolic acid 1 mg oral tablet 1 mg, 1, tablet, By Mouth, Daily, Refills 0, Maintenance, 05/05/20 8:22:00 EDT, Partial fill upon patient request if the prescription is for a schedule II opioid drug. Start Date: 05/05/20 Status: OrderedMultivitamin Tablet 1 tablet, By Mouth, Daily, 0 Refills, Maintenance, 05/05/20 8:22:00 EDT, Tablet, Partial fill upon patient request if the prescription is for a schedule II opioid drug. Start Date: 05/05/20 Status: OrderedNicotine = 14 mg, Topically, Daily, 0 Refills, Maintenance, 05/05/20 8:22:00 EDT, Patch, Partial fill upon patient request if the prescription is for a schedule II opioid drug. Start Date: 05/05/20 Status: OrderedPyridoxine Tablet 50 mg, By Mouth, Daily, Refills 0, Maintenance, 05/05/20 8:22:00 EDT, Partial fill upon patient request if the prescription is for a schedule II opioid drug. Start Date: 05/05/20 Status: Ordered Problem List Condition Effective Dates Status Health Status Informant Cirrhosis, alcoholic(Confirmed) Active Hepatitis C, chronic(Confirmed) Active HIV (human immunodeficiency virus Active infection)(Confirmed) IVDU (intravenous drug Active user)(Confirmed) Abnormal laboratory test(Confirmed)1, 07/29/15 Active 2 1Pt did not keep 2 additional appts. Letter sent to the referring source and to the pt.2Positive T-spot. Pt did not keep 2 sched appts. Letter sent to the referring source and to the pt. Social History Social History Type Response Smoking Status Current every day smoker entered on: 06/07/14 Sex
--- OUTSIDE RECORDS SUMMARY | 2022-01-11 05:21 | XMS_ITS | Continuity of Care Document ---
:1965 Author Organization [facility] Address [address] [place] [id number]- Care Team Providers Name Role Phone Patricia Owne MD Primary Care Physician [place] [facility] [place] 03[place]23/[place] - 03/25/[address] [address] Encounter Diagnosis Syncope (Final) - 03/23/19 Facial abrasion (Final) - 03/23/19 Fall (Final) - 03/23/19 Discharge Disposition: A-D/C Home Attending Physician: Keshawn Templeton MD Admitting Physician: Demi Toledo MD Referring Physician: Not on Staff, Referring MD Allergies, Adverse Reactions, Alerts Substance Reaction Severity Status NKA Active Immunizations Given and Recorded Vaccine Date Status Refusal Reason influenza virus vaccine, inactivated 11/26/17 Given influenza virus vaccine, inactivated 05/15/17 Given pneumococcal 23-valent vaccine 05/15/17 Given tetanus-diphtheria toxoids (Td) 09/25/09 Given Medications Methadone By Mouth, Daily, 0 Refills, Maintenance, 03/25/19 11:52:00 EST, Tablet, Partial fill upon patient request Start Date: 03/25/19 Status: Ordered Problem List Condition Effective Dates Status Health Status Informant Abnormal laboratory test(Confirmed)1, 07/29/15 Active 2 1Pt did not keep 2 additional appts. Letter sent to the referring source and to the pt.2Positive T-spot. Pt did not keep 2 sched appts. Letter sent to the referring source and to the pt. Vital Signs Most recent to oldest [Reference 1 2 3 Range]: Height 173 cm 173 cm 173 cm (03/25/19 11:23 AM) (03/25/19 7:14 AM) (03/25/19 3:18 AM) Weight 78.8 kg 79 kg (03/24/19 12:22 AM) (03/23/19 11:52 PM) Oxygen Saturation [94-100 %] 96 % 94 % 93 % (03/25/19 11:23 AM) (03/25/19 7:14 AM) *L* (03/25/19 3:18 AM) Pulse Rate [55-90 bpm] 85 bpm 73 bpm 77 bpm (03/25/19 11:23 AM) (03/25/19 7:14 AM) (03/25/19 3:18 AM) Body Mass Index [18.5-24.99] 26.4 *H* (03/23/19 11:52 PM) Blood Pressure [90-138/55-84 mm 139/76 mm Hg 109/80 mm Hg 121/80 mm Hg Hg] *H* (03/25/19 7:14 AM) (03/25/19 3:18 AM ) (03/25/19 11:23 AM) Respiratory Rate [16-30 br/min] 18 br/min 18 br/min 18 br/min (03/25/19 11:23 AM) (03/25/19 8:50 AM) (03/25/19 8:36 AM) Temperature [96.8-100.4 DegF] 97.5 DegF 97.7 DegF 97 .9 DegF (03/25/19 11:23 AM) (03/25/19 7:14 AM) (03/25/19 3:18 AM) Mode of Delivery (Oxygen) Room air Room air Room a ir (03/25/19 11:23 AM) (03/25/19 7:14 AM) (03/25/19 3:18 AM) Blood pressure sites Arm, right Arm, right Arm, right (03/25/19 11:23 AM) (03/25/19 7:14 AM) (03/25/19 3:18 AM) Temperature Route Oral Oral Oral (03/25/19 11:23 AM) (03/25/19 7:14 AM) (03/25/19 3:18 AM) Dry Weight 79 kg (03/23/19 11:52 PM) Weight Obtained Via Bed scale Bed scale (03/24/19 12:22 AM) (03/23/19 11:52 PM) Dry Weight Obtained Via Bed scale (03/23/19 11:52 PM) Social History Social History Type Response Smoking Status Current every day smoker entered on: 06/07/14 Sex
--- OUTSIDE RECORDS SUMMARY | 2022-01-11 05:21 | XMS_ITS | Continuity of Care Document ---
:1965 Author Organization [facility] Address [address] [place] [id number]- Care Team Providers Name Role Phone Patricia Owen MD Primary Care Physician [phone] Encounter [facility] [place] Date(s): 05/07/21 - 07/01/21 [facility] [address] [place] [id number] Attending Physician: Martinez Casey MD Admitting Physician: Martinez Casey MD Referring Physician: Patricia Owen MD Allergies, Adverse Reactions, Alerts No Known Allergies Immunizations Given and Recorded Vaccine Date Status Refusal Reason influenza virus vaccine, inactivated 11/26/17 Given influenza virus vaccine, inactivated 05/15/17 Given pneumococcal 23-valent vaccine 05/15/17 Given tetanus-diphtheria toxoids (Td) 09/25/09 Given Medications Bactrim DS Tablet 1, tablet, By Mouth, Daily, Maintenance, 05/05/20 8:22:00 EDT Start Date: 05/05/20 Status: OrderedBactrim SS Tablet 1, tablet, By Mouth, Daily, Maintenance, 10/28/20 12:59:00 EDT Start Date: 10/28/20 Status: Orderedbictegravir/emtricitabine/tenofovir 1 tablet, By Mouth, Daily, 0 Refills, Maintenance, 05/05/20 8:21:00 EDT, Tablet, Partial fill upon patient request if the prescription is for a schedule II opioid drug. Start Date: 05/05/20 Status: OrderedColace sodium 100 mg oral capsule 100 mg, 1, capsule, By Mouth, 2 times a day, Refills 0, Maintenance, 10/28/20 12:59:00 EDT, Partial fill upon patient request if the prescription is for a schedule II opioid drug. Start Date: 10/28/20 Status: Orderedfolic acid 1 mg oral tablet 1 mg, 1, tablet, By Mouth, Daily, Refills 0, Maintenance, 05/05/20 8:22:00 EDT, Partial fill upon patient request if the prescription is for a schedule II opioid drug. Start Date: 05/05/20 Status: Orderedmethadone 10 mg oral tablet 6 tablets, By Mouth, Daily, 0 Refills, Maintenance, 10/28/20 12:58:00 EDT, Tablet, Partial fill uponpatient request if the prescription is for a schedule II opioid drug. Start Date: 10/28/20 Status: OrderedMultivitamin Tablet 1 tablet, By Mouth, [...] IVDU (intravenous drug Active user)(Confirmed) Abnormal laboratory test(Confirmed), 07/29/15 Active 2 1Pt did not keep 2 additional appts. Letter sent to the referring source and to the pt.2Positive T-spot. Pt did not keep 2 sched appts. Letter sent to the referring source and to the pt. Social History Social History Type Response Tobacco Use: 4 or less cigarettes(le ss than 1/4 pack)/day in last 30 days. Interested in cessatio n: Yes. Sex
--- OUTSIDE RECORDS SUMMARY | 2022-01-11 05:21 | XMS_ITS | Continuity of Care Document ---
:1965 Author Organization [facility] Address [address] [place] [id number]- Care Team Providers Name Role Phone Patricia Owen MD Primary Care Physician [phone] Encounter [facility] [place] Date(s): 05/14/20 - 07/18/20 [facility] [address] [place] [id number] Attending Physician: Octaviano Thompson MD Admitting Physician: Donna TOSCANO, Octaviano Hayes Referring Physician: Patricia Owen MD Allergies, Adverse Reactions, Alerts Substance Reaction [...]
--- OUTSIDE RECORDS SUMMARY | 2022-01-11 05:21 | XMS_ITS | Continuity of Care Document ---
:1965 Author Organization [facility] Address [address] [place] [address]- Care Team Providers Name Role Phone Patricia Owen MD Primary Care Physician Encounter [facility] Date(s): 09/21/21 - 10/21/21 [facility] [address], [place] [address] Attending Physician: Betito Singh Admitting Physician: Betito Singh Referring Physician: AdmtrBetito Allergies, Adverse Reactions, Alerts No Known Allergies [...] days. Interested in cessatio n: Yes. Sex Care Team PersonnelName: Patricia Owen MD Address: [address] [place] [address] [place] [address]
--- OUTSIDE RECORDS SUMMARY | 2022-01-11 05:21 | XMS_ITS | Continuity of Care Document ---
:1965 Author Organization [facility] Address [address] [place] [address]- Care Team Providers Name Role Phone Not on Staff, PCP Primary Care Physician Unavailable [place] [facility] [place] 12/12/20 [facility] [address] [place] [id number] Attending Physician: Donna TOSCANO, Octaviano Hayes Admitting Physician: Donna TOSCANO, Octaviano Hayes Referring Physician: Lexie TOSCANO , Patricia Lamb Allergies, Adverse Reactions, Alerts No Known Medication Allergies Medications Bactrim SS Tablet 1, tablet, By Mouth, Daily, Maintenance, 10/28/20 12:59:00 EDT Start Date: 10/28/20 Status: OrderedColace sodium 100 mg oral capsule 100 mg, 1, capsule, By Mouth, 2 times a day, Refills 0, Maintenance, 10/28/20 12:59:00 EDT, Partial fill upon patient request if the prescription is for a schedule II opioid drug. Start Date: 10/28/20 Status: Orderedmethadone 10 mg oral tablet 6 tablets, By Mouth, Daily, 0 Refills, Maintenance, 10/28/20 12:58:00 EDT, Tablet, Partial fill uponpatient request if the prescription is for a schedule II opioid drug. Start Date: 10/28/20 Status: Ordered Social History Social History Type Response Tobacco Use: 4 or less cigarettes(le ss than 1/4 pack)/day in last 30 days. Interested in cessatio n: Yes. Sex
--- OUTSIDE RECORDS SUMMARY | 2022-01-11 05:21 | XMS_ITS | Continuity of Care Document ---
:1965 Author Organization [facility] Address [address] [place] [address]- Care Team Providers Name Role Phone Patricia Owen MD Primary Care Physician Encounter [facility] [place] Date(s): 09/21/21 - 10/21/21 [facility] [address], [place] [address] Attending Physician: Uzair Barbosa DO Referring Physician: Patricia Owen MD Allergies, Adverse [...] cessatio n: Yes. Sex Care Team PersonnelName: Lexie TOSCANO , Patricia Lamb Address: [address] [place] [address] [address] [place] [address]-
--- OUTSIDE RECORDS SUMMARY | 2022-01-11 05:21 | XMS_ITS | Continuity of Care Document ---
:1965 Author Organization [facility] Address [address] [place] [address]- Care Team Providers Name Role Phone Patricia Owen MD Primary Care Phys[id number] Date[facility] - 05/24/[address] [address]- Discharge Disposition: A-D/C Home Attending Physician: Sandy Quiroz MD Admitting Physician: Sandy Quiroz MD Referring Physician: Not on Staff, Referring MD Allergies, Adverse Reactions, Alerts No Known [...] II opioid drug. Start Date: 10/28/20 Status: OrderedMethadone Liquid 30 mg, Solution, By Mouth, Once, STAT, 05/24/21 17:53:00 EDT, Stop date 05/24/21 17:53:00 EDT Start Date: 05/24/21 Stop Date: 05/24/21 Status: CompletedMultivitamin Tablet 1 tablet, By Mouth, Daily, 0 [...] to oldest [Reference 1 2 3 Range]: Oxygen Saturation [94-100 %] 98 % 96 % (05/24/21 1:34 PM) (05/24/21 1:29 PM) Pulse Rate [55-90 bpm] 61 bpm 70 bpm 63 bpm (05/24/21 5:33 PM) (05/24/21 1:34 PM) (05/24/21 1:29 P M) Blood Pressure [90-138/55-84 mm 129/76 mm Hg 90/53 mm Hg Hg] (05/24/21 5:33 PM) (05/24/21 1:29 PM) Respiratory Rate [16-30 br/min] 18 br/min 18 br/min 19 br/min (05/24/21 6:27 PM) (05/24/21 5:33 PM) (05/24/21 1:29 P M) Temperature [96.8-100.4 DegF] 97.8 DegF 97.9 DegF (05/24/21 5:33 PM) (05/24/21 1:29 PM) Mode of Delivery (Oxygen) Room air (05/24/21 1:29 PM) Blood pressure sites Arm, left Arm, right (05/24/21 5:33 PM) (05/24/21 1:29 PM) Temperature Route Oral Oral (05/24/21 5:33 PM) (05/24/21 1:29 PM) Social History Social History Type Response Tobacco Use: 4 or less cigarettes(le ss than 1/4 pack)/day in last 30 days. Interested in cessatio n: Yes. Sex
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
--- OUTSIDE RECORDS SUMMARY | 2022-01-11 05:22 | XMS_ITS | Continuity of Care Document ---
:1965 Author Organization [facility] Address [address] [place] [address]- Care Team Providers Name Role Phone Patricia Owen MD Primary Care Physician Encounter [facility] [place] Date(s): 06/01/21 - 07/01/21 [facility] [address] [place] [id number] Attending Physician: Betito Singh Admitting [...]
--- OUTSIDE RECORDS SUMMARY | 2022-01-11 05:22 | XMS_ITS | Continuity of Care Document ---
:1965 Author Organization [facility] Address [address] [place] [address]- Care Team Providers Name Role Phone Patricia Owen MD Primary Care Physician En[facility] [id number] Date(s): 05/22/19 - 05/29/19 [facility] [address] [place] [address]- [facility] Attending Physician: Jez TOSCANO, Tatiana Richard Referring Physician: Patricia Owen MD Allergies, Adverse Reactions, Alerts Substance Reaction Severity Status NKA Active Immunizations Given and Recorded Vaccine Date Status Refusal Reason influenza virus vaccine, inactivated 11/26/17 Given influenza virus vaccine, inactivated 05/15/17 Given pneumococcal 23-valent vaccine 05/15/17 Given tetanus-diphtheria toxoids (Td) 09/25/09 Given Medications amitriptyline 25 mg oral tablet 25 mg, 1, tablet, By Mouth, Daily at bedtime, # 30 tablet, Refills 0, Tot. Refills 0, Maintenance, 05/22/19 18:24:00 EDT, Route to Pharmacy Electronically, [facility] #[id number], 173, cm, 05/22/19 18:03:00 EDT, Height, 79, kg, 03/23/19 23:56:00 EST, Dry... Start Date: 05/22/19 Stop Date: 06/21/19 Status: OrderedBactrim DS 800 mg-160 mg oral tablet 1 tablet, By Mouth, 2 times a day, for 10 days, # 20 tablet, 0 Refills, Acute 06/01/19 18:23:00 EDT,05/22/19 18:23:00 EDT, Tablet, [facility]/pharmacy #[id number], 1 tablet By Mouth 2 times a day,x10 days, 173, cm, 05/22/19 18:03:00 EDT, Height, 79, kg, 03/23/19... Start Date: 05/22/19 Stop Date: 06/01/19 Status: OrderedMethadone By Mouth, Daily, 0 Refills, Maintenance, 03/25/19 [...] Vital Signs Most recent to oldest [Reference Range]: 1 Height 173 cm (05/22/19 6:03 PM) Oxygen Saturation [94-100 %] 99 % (05/22/19 6:03 PM) Pulse Rate [55-90 bpm] 96 bpm *H* (05/22/19 6:03 PM) Blood Pressure [90-138/55-84 mm Hg] 119/77 mm Hg (05/22/19 6:03 PM) Respiratory Rate [16-30 br/min] 18 br/min (05/22/19 6:03 PM) Temperature [96.8-100.4 DegF] 98.3 DegF (05/22/19 6:03 PM) Mode of Delivery (Oxygen) Room air (05/22/19 6:03 PM) Blood pressure sites Arm, left (05/22/19 6:03 PM) Temperature Route Oral (05/22/19 6:03 PM) Social History Social History Type Response Smoking Status Current every day smoker entered on: 06/07/14 Sex
--- OUTSIDE RECORDS SUMMARY | 2022-01-11 05:22 | XMS_ITS | Continuity of Care Document ---
:1965 Author Organization [facility] Address [address] [place] [address]- Care Team Providers Name Role Phone Patricia Owen MD Primary Care Physician En[place] [facility] [place] Date(s): 10/21/20 - 12/12/20 [facility] [address] [place] [id number] Attending Physician: Octaviano Thompson MD Admitting Physician: Octaviano Thompson MD Referring Physician: Patricia Owen MD Allergies, [...]
--- OUTSIDE RECORDS SUMMARY | 2022-01-11 05:22 | XMS_ITS | Continuity of Care Document ---
:1965 Author Organization [facility] Address [address] [place] [address]- Care Team Providers Name Role Phone Not on Staff, PCP Primary Care Physician Unavailable Encounter [facility] [place] Date(s): 11/12/20 - 12/12/20 [facility] [address] [place] [id number] Attending Physician: Betito Singh Admitting Physician: Betito Singh Referring Physician: AdmtrBetito Allergies, Adverse Reactions, Alerts No Known Medication [...]
--- OUTSIDE RECORDS SUMMARY | 2022-01-11 05:22 | XMS_ITS | Continuity of Care Document ---
:1965 Author Organization [facility] Address [address] [place] [address]- Care Team Providers Name Role Phone Patricia Owen MD Primary Care Physician [place] [facility] [place] Date(s): 11/04/20 - 12/12/20 [facility] [address] [place] [id number] Attending Physician: Octaviano Thompson MD Admitting Physician: [...]
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
--- OUTSIDE RECORDS SUMMARY | 2022-01-11 05:22 | XMS_ITS | Continuity of Care Document ---
:1965 Author Organization [facility] Address [address] [place] [address]- Care Team Providers Name Role Phone Patricia Owen MD Primary Care Physician En[place] [facility] [place] Date(s): 05/22/19 - 06/01/19 [facility] [address] [place] [address]- [facility] Attending Physician: Betito Singh Admitting Physician: Betito Singh Referring Physician: AdmtrBetito Allergies, Adverse Reactions, Alerts Substance Reaction Severity [...] 05/22/19 18:24:00 EDT, Route to Pharmacy Electronically, [facility]/pharmacy #[id number], 173, cm, 05/22/19 18:03:00 EDT, Height, 79, kg, 03/23/19 23:56:00 EST, Dry... Start Date: 05/22/19 Stop Date: 06/21/19 Status: OrderedMethadone By Mouth, Daily, 0 Refills, [...]
--- OUTSIDE RECORDS SUMMARY | 2022-01-11 05:22 | XMS_ITS ---
:1965 Author Care Team Providers Name Role Phone VIRGINIA ESPINAL MD Primary Care Provider [phone] [facility] OTHER [phone] Allergies Code Code System Name Reaction Severity Status Onset NKDA ? Medications Notes: Meds reviewed, see MAR for accu rate list. Problems Name Status Onset Date Source ? Chronic Hepatitis C Active 05/06/2020 ? Opioid Dependence Active 05/06/2020 ? 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 Human Immunodeficiency Virus Infection Active ? 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 Procedures None recorded. Results Lab Results None recorded. Past Encounters None recorded. Social History Tobacco Smoking Status Current Every Day Smoker Vaccine List Notes: 1st request sent 05/12 Plan of Care Reminders Provider Appointments None recorded. ? ? Lab None recorded. ? ? Referral None recorded. ? ? Procedures None recorded. ? ? Surgeries None recorded. ? ? Imaging None recorded. ? ? Vitals 06/11/2020 01:04PM Discharge Summary Height Weight BMI Blood Pressure 5 ft 11 in 146.1 lbs 20.4 kg/m2 108/72 mm[Hg] 06/01/2020 12:25PM Routine Rounding Visit Blood Pressure 127/81 mm[Hg] 05/26/2020 11:27AM Acute Rounding Visit Blood Pressure 117/75 mm[Hg] 05/25/2020 01:50PM Acute Rounding Visit Blood Pressure 108/70 mm[Hg] 05/19/2020 08:32AM Acute Rounding Visit Blood Pressure 111/61 mm[Hg] 05/14/2020 08:49AM Acute Rounding Visit Blood Pressure 106/68 mm[Hg] 05/08/2020 07:38AM Telemed Admitting H&P Blood Pressure 115/65 mm[Hg] 05/06/2020 12:59PM Initial Intake Note Blood Pressure 110/58 mm[Hg]
--- OUTSIDE RECORDS SUMMARY | 2022-01-11 05:22 | XMS_ITS | Continuity of Care Document ---
:1965 Author Organization [facility] Address [address] [place] [address]- Care Team Providers Name Role Phone Patricia Owen MD Primary Care [id number] - 10[facility]16[facility]21 [facility] [address] [place] [address]- Allergies, Adverse Reactions, Alerts No Known Allergies [...] Team PersonnelName: Patricia Owen MD Address: [address] [place] [address] [address] [place], [place] [address]
--- OUTSIDE RECORDS SUMMARY | 2022-01-11 05:22 | XMS_ITS | Continuity of Care Document ---
:1965 Author Organization [facility] Address [address] [place] [address]- Care Team Providers Name Role Phone Patricia Owen MD Primary Care Physician [phone] Encounter [facility] [place] Date(s): 06/18/20 - 07/18/20 [facility] [address] [place] [id number] Attending Physician: Betito Singh Admitting Physician: Admtr, Betito Referring Physician: Admtr, [...]
--- OUTSIDE RECORDS SUMMARY | 2022-01-11 05:22 | XMS_ITS | Continuity of Care Document ---
:1965 Author Organization [facility] Address [address] [place] [id number]- Care Team Providers Name Role Phone Not on Staff, PCP Primary Care Physician Unavailable Encounter [facility] Date(s): 10/21/20 - 10/28/[address] [id number] Discharge Disposition: A-D/C Home Attending Physician: Jenaro Witt MD Admitting Physician: Elsy Kuhn MD Referring Physician: Not on Staff, Referring MD Allergies, Adverse Reactions, Alerts No Known Medication [...] II opioid drug. Start Date: 10/28/20 Status: OrderedlevoFLOXacin 750 mg oral tablet 1 tablet = 750 mg, By Mouth, Every 24 hours, for 2 days, # 2 tablet, 0 Refills, Acute 10/30/20 12:59:00 EDT, 10/28/20 12:59:00 EDT, Tablet, Partial fill upon patient request if the prescription is for a schedule II opioid drug. Start Date: 10/28/20 Stop Date: 10/30/20 Status: Orderedmethadone 10 mg oral tablet 60 mg, Tablet, By Mouth, 10/28/20 9:00:00 EDT Start Date: 10/28/20 Stop Date: 10/28/20 Status: Completedmethadone 10 mg oral tablet 6 tablets, By Mouth, Daily, 0 Refills, Maintenance, 10/28/20 12:58:00 EDT, Tablet, Partial fill uponpatient request if the prescription is for a schedule II opioid drug. Start Date: 10/28/20 Status: Ordered Results Orders for Microbiology Reports Name Date Blood Culture #2 10/20/20 Blood Culture 10/20/20 Blood Culture #2 10/20/20 Microbiology Reports TEST:Blood Culture STATUS:Auth (Verified) BODY SITE: SOURCE:Blood COLLECTED DATE/TIME:10/20/20 5:55 PMBlood Culture SPECIMEN DESCRIPTION : BLOOD LFA SPECIAL REQUESTS : NONE CULTURE : NO GROWTH 6 DAYS REPORT STATUS : FINAL 10/26/2020TEST:Blood Culture, Second Order STATUS:Auth (Verified) BODY SITE: SOURCE:Blood COLLECTED DATE/TIME:10/20/20 5:55 PMBlood Culture, Second Order SPECIMEN DESCRIPTION : BLOOD LT HAND SPECIAL REQUESTS : NONE CULTURE : NO GROWTH 6 DAYS REPORT STATUS : FINAL 10/26/2020TEST:Blood Culture, Second Order STATUS:Auth (Verified) BODY SITE: SOURCE:Blood COLLECTED DATE/TIME:10/20/20 5:45 PMBlood Culture, Second Order SPECIMEN DESCRIPTION : BLOOD RT HAND SPECIAL REQUESTS : CRITICAL VALUE CALLED AND VERIFIED BY READBACK FOR: GRAM NEGATIVE RODS,LU [id number],D3,TECH 357,10/21/20 @0957. CULTURE : SERRATIA MARCESCENS Serratia marcescens was identified by multi-plex PCR REPORT STATUS : FINAL 10/23/2020 ORGANISM SERRATIA MARCESCENS METHOD MIN. INHIB. CONC. (MCG/ML) AMPICILLIN SUSCEPTIBLE AMPICILLIN/SULBACTAM SUSCEPTIBLE AMOXICILLIN/CLAVULAN SUSCEPTIBLE CEFAZOLIN RESISTANT CEFEPIME SUSCEPTIBLE CEFTRIAXONE SUSCEPTIBLE CIPROFLOXACIN SUSCEPTIBLE ERTAPENEM SUSCEPTIBLE GENTAMICIN SUSCEPTIBLE LEVOFLOXACIN SUSCEPTIBLE MEROPENEM SUSCEPTIBLE PIPERACILLIN/TAZOBAC SUSCEPTIBLE TRIMETH/SULFAMETHOX SUSCEPTIBLE TETRACYCLINE RESISTANTRadiology Reports Exam Date Time Procedure Performing Provider Status 10/28/20 8:15 AM Abdomen AP Akanksha Dickens; Auth (Kevin berrios) Notes:(Abdomen AP) Reason For Exam: ConstipationRESULT: XR Abdomen AP XR Abdomen AP 1 view INDICATION/CLINICAL QUESTION: Reason: Constipation; Clinical Question(s): Obstruction; resolving ileus. COMPARISON: 10/25/2020. FINDINGS: Nonspecific bowel gas pattern. No evidence for obstruction. No evidence of pneumoperitoneum, however sensitivity limited in this supine radiograph. No organomegaly, masses or calcifications. No acute bone findings. IMPRESSION: No significant stool retention. No evidence for obstruction. I have personally reviewed the images and I agree with this report. WSN: [id number] Ordering Physician: Antonia Braxton Dictated By: Abdon[Radiology] Uday TOSCANO Dictated Date/Time: 10/28/20 12:05 p Reviewed By: Nestor Bojorquez MD Signed By: Nestor Bojorquez MD Signed Date/Time: 10/28/20 12:10 pm Transcribed By: JEREMIAS Transcribed Date/Time: 10/28/20 11:18 am Exam Date Time Procedure Performing Provider Status 10/25/20 7:46 PM Abdomen Comp Inc Decub and/or Leida , Izabela; Au th (Verified) Erect Notes:(Abdomen Comp Inc Decub and/or Erect) Reason For Exam: ConstipationRESULT: Abdomen Comp Inc Decub and/or Erect Abdomen Comp Inc Decub and/or Erect 1 view INDICATION/CLINICAL QUESTION: Reason: Constipation; Clinical Question(s): Obstruction. COMPARISON: None FINDINGS: No small bowel distention. Mild distention of the transverse colon measuring up to approximately 6.5 cm. IMPRESSION: Mild transverse colonic distention could be due to early or mild ileus WSN: [id number] Ordering Physician: Keisha Davalos Dictated By: Billy Ospina MD Dictated Date/Time: 10/25/20 7:50 pm Reviewed By: Billy Ospina MD Signed By: Billy Ospina MD Signed Date/Time: 10/25/20 7:50 pm Transcribed By: JEREMIAS Transcribed Date/Time: 10/25/20 7:48 pm Vital Signs Most recent to oldest [Reference 1 2 3 Range]: Height 174 cm 174 cm 174 cm (10/28/20 11:05 AM) (10/28/20 7:01 AM) (10/28/20 3:44 AM) Weight 73.5 kg (10/20/20 11:53 PM) Oxygen Saturation [94-100 %] 98 % 98 % 98 % (10/28/20 11:05 AM) (10/28/20 7:01 AM) (10/28/20 3:44 AM) Pulse Rate [55-90 bpm] 66 bpm 70 bpm 75 bpm (10/28/20 11:05 AM) (10/28/20 7:01 AM) (10/28/20 3:44 AM) Body Mass Index [18.5-24.99] 24.28 (10/20/20 11:53 PM) Blood Pressure [90-138/55-84 mm 115/70 mm Hg 116/74 mm Hg 109/70 mm Hg Hg] (10/28/20 11:05 AM) (10/28/20 7:01 AM) (10/28/20 3:44 AM) Respiratory Rate [16-30 br/min] 20 br/min 20 br/min 20 br/min (10/28/20 11:05 AM) (10/28/20 8:01 AM) (10/28/20 7:44 AM) Temperature [96.8-100.4 DegF] 97.9 DegF 97.9 DegF 97 .8 DegF (10/28/20 11:05 AM) (10/28/20 7:01 AM) (10/28/20 3:44 AM) Mode of Delivery (Oxygen) Room air Room air Room a ir (10/28/20 11:05 AM) (10/28/20:01 AM) (10/28/20 3:44 AM) Blood pressure sites Arm, left Arm, right Arm, right (10/28/20 11:05 AM) (10/28/20 7:01 AM) (10/28/20 3:44 AM) Temperature Route Oral Oral Oral (10/28/20 11:05 AM) (10/28/20:01 AM) (10/28/20 3:44 AM) Dry Weight 73.5 kg (10/20/20 11:53 PM) Social History Social History Type Response Tobacco Use: 4 or less cigarettes(le ss than 1/4 pack)/day in last 30 days. Interested in cessatio n: Yes. Sex
--- NOTE | 2022-01-11 05:55 | PC.NURSE ---
This RN spoke with RN at [facility] methadone clinic. RN confirmed last dose of methadone was 63mg at 0600 on 01/10/22. MD Gonzalez notified.
[2022-01-11] MEDS: methADONE HCl 20 MG/2 ML ORAL.CONC 65 MG PO (07:45)
--- NOTE | 2022-01-11 10:41 | PM.GICN ---
History of Present Illness Data of Consult Service Date: 01/11/22 Requesting physician: Anne Corral Primary Care Provider: Patricia Owen MD HPI Reason for consult: abn LFT, gallstones 56 year old male with a PMH of HIV (not on HAART), Hep C (untreated), active IVDU with heroin who I am seeing for assessment for gallstones and abn LFT He noted severe right upper quadrant pain for 2 days, now 4/10 in severity without any radiation. Pain is burning in nature, no obvious releiving or exacerbating factors..? Patient states that he has been drinking alcohol, and drinks 4 bottles of beer on a regular basis. Patient denies fever chills, but admits to nausea and non bloody vomiting, denies diarrhea, no melena. US with GB thickening and sludge or stones in GB, mild dilated CBD 9 mm HIDA done this admission--negative with patent cystic duct and CBD Last CD4 count: 585 (2019) Review of Systems Review of Systems: Constitutional : No Weight loss, No Fever, No Chills, No Night Sweats, No Fatigue, No Malaise ENT/Mouth : No Hearing loss, No Ear Pain, No Nasal Congestion, No Sinus Pain, No Hoarseness, No sore throat, No Rhinorrhea, No Swallowing Difficulty Eyes: No Eye Pain, No Swelling, No Redness, No Discharge, No Vision Changes Cardiovascular : No Chest Pain, No SOB, No Dyspnea on Exertion, No Orthopnea, No Edema, No Palpitations Respiratory : No Cough, No Sputum, No Wheezing, No Smoke Exposure, No Dyspnea Gastrointestinal : as above Genitourinary : no irregular bleeding, No Dysuria, No Urinary Frequency, No Hematuria, No Urinary Incontinence, No Urgency, No Flank Pain, No Urinary Flow Changes, No Hesitancy Musculoskeletal : No joint pain, No Myalgias, No Joint Swelling Skin : No Skin Lesions, No rash Neuro : No Weakness, No Numbness, No Paresthesias, No Loss of Consciousness, No Dizziness, No Headache Psych : No Anxiety/Panic, No Depression, No SI/HI/AH/VH, No Social Issues, Heme/Lymph: No Bruising, No Bleeding,No Lymphadenopathy Endocrine : No Polyuria, No Polydipsia, No Temperature Intolerance PMFSH Past Medical History Medical History Elevated LFTs Hepatitis C HIV (human immunodeficiency virus infection) Intravenous drug abuse Thrombocytopenia Family History Pertinent family history: No FH of HIV, biliary disease Surgical History Surgical History H/O lymph node biopsy Social History Social History Alcohol intake: current Alcohol intake frequency: a few times a month Patient Tobacco Use Status: Current everyday Tobacco user Tobacco use type: Cigarette Cigarettes Per Day: 2 Substance Use Type: Heroin Advance Directives: No service: No Current occupational status: unemployed Meds Allergies Allergy/AdvReac Type Severity Reaction Status Date / Time No Known Allergies Allergy Mild NOT Unverified 11/07/19 15:45 APPLICABLE Home Medications Medication Instructions Recorded Confirmed Last Taken Type methadone 10 mg/mL oral concentrate 63 mg PO DAILY 10/29/21 01/11/22 01/10/22 05:45 History Physical Exam Vital Signs: Vital Signs: Last Vital Signs Temp 98.1 F 01/11/22 08:46 Pulse 81 01/11/22 08:46 Resp 12 01/11/22 08:46 BP 130/85 01/11/22 08:46 Pulse Ox 95 01/11/22 08:46 O2 Del Method 01/11/22 08:46 O2 Flow Rate 97 01/11/22 05:12 BMI result Body Mass Index 25.8 EXAM: GENERAL: The patient is uncomfortable VITAL SIGNS:see workflow HEENT: icteric sclerae, PERRLA, EOMI. Oropharynx clear. Moist mucous membranes. Conjunctivae appear well perfused. No thyroid mass. CHEST: Chest wall is nontender. HEART: Regular rate and rhythm without murmurs. LUNGS: Clear to auscultation bilaterally. ABDOMEN: Soft, positive bowel sounds, tender RUQ, no organomegaly.no flank tenderness SKIN: No rash, no excessive bruising, petechiae, or purpura. NEUROLOGIC: Cranial nerves II-XII intact without motor/sensory deficit. psych- appropriate affect Const: Other: Appearance: Alert. Oriented X3. No acute distress. Eyes: Pupils equal, round and reactive to light. Scleral icterus ENT: Pharynx normal. Neck: Normal inspection. Neck supple. No lymph nodes noted. No crepitus CVS: Normal heart rate and rhythm. Pulses normal. Normal S1 and S2 Respiratory: No respiratory distress. Breath sounds normal. No Wheezing. No rales Abdomen: Soft, distended, tenderness to palpation over the right upper quadrant, the liver seems to be enlarged, on bedside abdominal ultrasound, there is ascites, but there is no other distinctive pocket of fluid were I could possibly do a paracentesis Skin: Skin warm and dry. Present icterus Extremities: No lower extremity edema. No Lacerations. No Rash Neuro: Oriented X 3. No motor deficit. No sensory deficit. Moving all extremities. No slurred speech. CN 2 through 12 grossly intact Psych: calm, cooperative, normal affect Results Labs CBC & Chem 7: 01/11/22 04:21 01/11/22 04:21 Labs: Short CBC 01/11/22 Range/Units 04:21 WBC 4.1 L (4.8-10.8) X10*3/uL Hgb 12.5 L (14.0-18.0) g/dl Hct 36.6 L (42.0-52.0) % Plt Count 73 L D (160-400) X10*3/uL BMP 01/11/22 04:21 Sodium 137 Potassium 3.7 Chloride 107 Carbon Dioxide 23 BUN 7 L Creatinine 0.71 Calcium 8.1 L Liver Function 01/11/22 Range/Units 04:21 Total Bilirubin 5.0 H (0.0-1.0) mg/dL Direct Bilirubin 2.8 H (0.0-0.5) mg/dL AST 170 H (5-37) U/L ALT 70 H (0-40) U/L Alkaline Phosphatase 163 H (39-117) U/L Albumin 2.6 L (3.5-5.0) g/dL Urine 01/11/22 Range/Units 04:59 Urine Color Dark Yellow Urine Appearance Clear Urine pH 6.5 (5.0-9.0) Ur Specific [place] 1.015 (1.005-1.025) Urine Protein Negative (Neg-Trace) mg/dL Urine Glucose (UA) Negative (Negative) mg/dL Assessment and Plan (1) Right upper quadrant abdominal pain: Status: Acute (2) Elevated LFTs: Status: Acute Plan 1/ RUQ pain with abn LFT on background of cirrhosis and alcohol/drug use. HIDA is nml with patent CBD and cystic duct arguing against gallstones. However he does have hx of ntreated hep c and hiv. DDX: progessive livr failure from Hep C and alcohol use with cirrhosis, HIV cholangiopathy, could have passed a retaned stone/sludge, acute viral hep e.g hep A, CMV, HSV, EBV PLAN: 1/ MRCP to eval for cholangiopathy and r/o liver cancer 2.hep A, B serologies, rept CD4 count chek IgM HSV,EBV and CMV, acetaminphen level, trend LFT daily, u tox hold on eRCP for moment Procedures Date of Service Date of Service: 01/11/22
--- NOTE | 2022-01-11 12:05 | PM.CNGS ---
History of Present Illness Consult details Consult date: 01/11/22 Reason for consult: abdominal pain Narrative: The patient is a 56-year-old gentleman with HIV, Hep C (untreateed), cirrhosis who presented with abdominal pain. The patient reports that his abdominal pain started two days ago without inciting events, but he told Dr. Hernández that he was drinking alcohol at that time. Today, CT scan abd/pelvis was negative for pericholecystic fluid or inflammation, but cirrhosis was again noted (first noted on 10/29/21 CT) and no other acute surgical pathology was identified. The patient had elevated liver function tests and subsequent abdominal ultrasound demonstrated borderline gallbladder wall thickening (3 mm versus 3.5 mm at 10/29/21 abd U/S) and intrahepatic ductal dilation with the common bile duct of 9 mm. Consequently, I was asked to evaluate the patient for concerns about ongoing gallbladder disease. The patient is a poor historian. He notes lower extremity swelling that is been going on for the past few weeks, possibly more than a month. Review of Systems Review of Systems: Yes all other systems are reviewed and are negative Constitutional: Constitutional: Reports as per [facility] Past Medical History Medical History Elevated LFTs Hepatitis C HIV (human immunodeficiency virus infection) Intravenous drug abuse Thrombocytopenia Surgical History Surgical History H/O lymph node biopsy Social History Social History Alcohol intake: current Alcohol intake frequency: a few times a month Patient Tobacco Use Status: Current everyday Tobacco user Tobacco use type: Cigarette Cigarettes Per Day: 2 Substance Use Type: Heroin Advance Directives: No service: No Current occupational status: unemployed Meds Allergies Allergy/AdvReac Type Severity Reaction Status Date / Time No Known Allergies Allergy Mild NOT Unverified 11/07/19 15:45 APPLICABLE Home Medications Medication Instructions Recorded Confirmed Last Taken Type methadone 10 mg/mL oral concentrate 63 mg PO DAILY 10/29/21 01/11/22 01/10/22 05:45 History Physical Exam Vital Signs: Vital Signs: Last Vital Signs Temp 98.1 F 01/11/22 08:46 Pulse 81 01/11/22 08:46 Resp 12 01/11/22 08:46 BP 130/85 01/11/22 08:46 Pulse Ox 95 01/11/22 08:46 O2 Del Method 01/11/22 08:46 O2 Flow Rate 97 01/11/22 05:12 BMI result Body Mass Index 25.8 On exam, he appears slightly icteric but is nontoxic PERRLA, EOMI Neck is supple with no masses, adenopathy or bruits Heart is regular Lungs are clear and equal anteriorly Abdomen is overweight with right upper quadrant focal tenderness with no peritoneal irritation to percussion. I do not appreciate any bruits. No lower abdominal pain to percussion or guarding is present Bilateral lower extremities have 2+ edema Results Labs Result diagrams: 01/11/22 04:21 01/11/22 04:21 Labs: Abnormal lab results 01/11/22 01/11/22 01/11/22 Range/Units 04:21 04:21 04:59 WBC 4.1 L (4.8-10.8) X10*3/uL RBC 3.78 L (4.60-5.80) X10*6/uL Hgb 12.5 L (14.0-18.0) g/dl Hct 36.6 L (42.0-52.0) % MCH 33.1 H (27.0-33.0) pg RDW 16.9 H (11.0-16.0) % Plt Count 73 L D (160-400) X10*3/uL MPV 12.5 H (9.4-12.4) fL Anion Gap 11 L (12-20) BUN 7 L (9-16) mg/dL Calcium 8.1 L (8.4-10.2) mg/dL Total Bilirubin 5.0 H (0.0-1.0) mg/dL Direct Bilirubin 2.8 H (0.0-0.5) mg/dL AST 170 H (5-37) U/L ALT 70 H (0-40) U/L Alkaline Phosphatase 163 H (39-117) U/L Total Protein 8.5 H (6.5-8.0) g/dL Albumin 2.6 L (3.5-5.0) g/dL Ur Leukocyte Esterase Trace H (Negative) Short CBC 01/11/22 Range/Units 04:21 WBC 4.1 L (4.8-10.8) X10*3/uL Hgb 12.5 L (14.0-18.0) g/dl Hct 36.6 L (42.0-52.0) % Plt Count 73 L D (160-400) X10*3/uL BMP 01/11/22 04:21 Sodium 137 Potassium 3.7 Chloride 107 Carbon Dioxide 23 BUN 7 L Creatinine 0.71 Calcium 8.1 L Liver Function 01/11/22 Range/Units 04:21 Total Bilirubin 5.0 H (0.0-1.0) mg/dL Direct Bilirubin 2.8 H (0.0-0.5) mg/dL AST 170 H (5-37) U/L ALT 70 H (0-40) U/L Alkaline Phosphatase 163 H (39-117) U/L Albumin 2.6 L (3.5-5.0) g/dL Urine 01/11/22 Range/Units 04:59 Urine Color Dark Yellow Urine Appearance Clear Urine pH 6.5 (5.0-9.0) Ur Specific [place] 1.015 (1.005-1.025) Urine Protein Negative (Neg-Trace) mg/dL Urine Glucose (UA) Negative (Negative) mg/dL Official interpretation of HIDA is pending, however there appears to be visualization of the gallbladder based on my interpretation. See radiologist's report confirming visualization of GB & CBD. Imaging Abdomen CT scan report/results: report reviewed and image reviewed CT scan - pelvis: report reviewed and image reviewed Abdominal ultrasound report/results: report reviewed and image reviewed Additional studies: HIDA is not consistent with cystic duct occlusion/acute cholecystitis. Assessment and Plan (1) Right upper quadrant abdominal pain: Status: Acute (2) Elevated LFTs: Status: Acute (3) Cirrhosis: Status: Acute (4) Splenomegaly: Status: Acute (5) Thrombocytopenia: Status: Acute (6) Intravenous drug abuse: Status: Acute (7) HIV (human immunodeficiency virus infection): Status: Acute Plan HIDA scan isn't c/w acute cholecystitis, making cirrhosis more likely, possible choledocholithiasis (less likely Measurement of gallbladder wall from 10/29/2021 showed 3.5 mm versus today's which is 3.0 mm which is essentially unchanged. However, there is increased size to the common bile duct suggestive of a possible episode of choledocholithiasis since the CBD is measuring 9 mm today verses 5 mm previously. The patient's cirrhosis will cause lower extremity edema as well as abnormal appearance to the gallbladder wall & intestines given hypoalbuminemia of 2.6. GI input in process. Please call if new surgical concerns arise. Procedures Date of Service Date of Service: 01/11/22
--- NOTE | 2022-01-11 14:22 | PM.IMHP ---
History of Present Illness Date of Service: 01/11/22 Chief Complaint: Abdominal pain 56 year old man presenting with right upper quadrant pain for 2 days. apaprently he has been drinking alcohol more heavily. He denied chest pain, nausea, vomiting, diarrhea. He has not had any recent travel or sick contacts. His case was discussed with general surgeon and housing development specialist. He had a HIDA scan in the ER which was negative, plan for MRCP which is not pending was in place. He was noted to have chronic thrombocytopenia, transaminitis and hyper for bilirubinemia with history of cirrhosis and hepatitis c . His vital signs are stable. He will be placed on observation for further management and treatment of possible passed stone versus HIV Review of Systems Review of Systems: Denies any recent fever chills or decrease in appetite respiratory denies any shortness of breath coverage production cardiovascular denies chest pain gastrointestinal denies any dysphagia abdominal genitourinary denies any dysuria frequency or hematuria musculoskeletal denies any joint pain or swelling neuropsych denies any weakness or seizures all other systems reviewed are negative [facility] Medical History Elevated LFTs Hepatitis C HIV (human immunodeficiency virus infection) Intravenous drug abuse Thrombocytopenia Surgical History H/O lymph node biopsy Social History Alcohol intake: current Alcohol intake frequency: a few times a month Patient Tobacco Use Status: Current everyday Tobacco user Tobacco use type: Cigarette Cigarettes Per Day: 2 Substance Use Type: Heroin Advance Directives: No service: No Current occupational status: unemployed Meds Allergies Allergy/AdvReac Type Severity Reaction Status Date / Time No Known Allergies Allergy Mild NOT Unverified 11/07/19 15:45 APPLICABLE Active Medications: Current Medications Pharmacy Consult (Consult Rx Perform Med Rec) 1 each MISCELLANE ONCE PRN PRN Reason: Consult order Home Medications Medication Instructions Recorded Confirmed Last Taken Type methadone 10 mg/mL oral concentrate 63 mg PO DAILY 10/29/21 01/11/22 01/10/22 05:45 History Physical Exam Vital Signs and Narrative: Vital Signs: Last Vital Signs Temp 97.9 F 01/11/22 13:46 Pulse 72 01/11/22 13:46 Resp 14 01/11/22 13:46 BP 140/87 H 01/11/22 13:46 Pulse Ox 96 01/11/22 13:46 O2 Del Method 01/11/22 13:46 O2 Flow Rate 97 01/11/22 05:12 BMI result Body Mass Index 25.8 Appearing in no acute distress head is normocephalic atraumatic eyes pupils are PERRLA sclera is anicteric mouth throat mucous membranes are intact and moist neck is supple no lymphadenopathy, no JVD noted lung sounds are clear to auscultation heart regular rate rhythm, clear S1, S2 positive bowel sounds, abdomen is soft, nontender neuro patient is alert x3, no focal deficits Results Labs CBC and Chem 7: 01/11/22 04:21 01/11/22 04:21 Labs: Laboratory Results - last 24 hr 01/11/22 01/11/22 01/11/22 04:21 04:21 04:21 MCV 96.8 MCH 33.1 H MCHC 34.2 RDW 16.9 H Plt Count 73 L D MPV 12.5 H Absolute Nucleated RBC 0.000 Nucleated RBC % (auto) 0.0 Anion Gap 11 L Estim Creat Clear Calc 109.7 Estimated GFR > 60 Random Glucose 96 Calcium 8.1 L Total Bilirubin 5.0 H Direct Bilirubin 2.8 H AST 170 H ALT 70 H Alkaline Phosphatase 163 H B-Natriuretic Peptide 95 Total Protein 8.5 H Albumin 2.6 L Lipase 35 Urine Color Urine Appearance Urine pH Ur Specific [place] Urine Protein Urine Glucose (UA) Urine Ketones Urine Blood Urine Nitrite Ur Leukocyte Esterase Urine RBC Urine WBC Ur Squamous Epith Cells Urine Bacteria Hyaline Casts Ethyl Alcohol 50 HIV-1 RNA copies/mL HIV-1 RNA logcopies/mL 01/11/22 01/11/22 04:59 04:59 MCV MCH MCHC RDW Plt Count MPV Absolute Nucleated RBC Nucleated RBC % (auto) Anion Gap Estim Creat Clear Calc Estimated GFR Random Glucose Calcium Total Bilirubin Direct Bilirubin AST ALT Alkaline Phosphatase B-Natriuretic Peptide Total Protein Albumin Lipase Urine Color Dark Yellow Urine Appearance Clear Urine pH 6.5 Ur Specific [place] 1.015 Urine Protein Negative Urine Glucose (UA) Negative Urine Ketones Negative Urine Blood Negative Urine Nitrite Negative Ur Leukocyte Esterase Trace H Urine RBC 0-2 Urine WBC 0-5 Ur Squamous Epith Cells 0-2 Urine Bacteria None Seen Hyaline Casts 0-2 Ethyl Alcohol HIV-1 RNA copies/mL Cancelled HIV-1 RNA logcopies/mL Cancelled Imaging Radiologist's Impressions: Impressions Abdomen/Pelvis CT 01/11/22 05:25 IMPRESSION: 1. Cirrhotic liver. Splenomegaly. No ascites. 2. No acute findings in the abdomen or pelvis. No inflammatory changes. Fleischner guidelines were followed. Abdomen Ultrasound 01/11/22 07:40 IMPRESSION: Mild thickening of gallbladder wall combined with tiny gallstones and minimal pericholecystic fluid, tenderness reported pressing on the gallbladder, combined raising concern for possible CHOLECYSTITIS. Surgical evaluation recommended, may consider correlation with HIDA scan. CBD is dilated 9 mm. Mild intrahepatic biliary dilatation. Enlarged liver with lobular surface suggesting liver parenchymal disease probably liver cirrhosis. (Referring physician staff is being called, to be alerted of the above findings and recommendations.) SS Hepatobiliary Scan Nuclear Medicine 01/11/22 13:10 IMPRESSION: Normal hepatic uptake. Patency CBD and cystic duct. Assessment and Plan (1) HIV (human immunodeficiency virus infection): Status: Acute Plan 56 year old man placed on observation for abdominal plan for possible retained vs passed stone, HIDA scan neg. Abdominal pain ? passed stone, HIV choliangiopathy Elevated LFT's HIDA scan neg dilated CBD Discussed with GI, MRCP pending IV fluids clear liquids for now viral load pending HIV/Hep C Does not appear to be on antiretrovirals, seems like he wants to be treated ID consult Transaminitis/hyperbilirubemia secondary to Cirrhosis follow LFT's RPP pending Normocytic anemia secondary to cirrhosis no bleeding Thrombocytopenia secondary to HIV, Cirrhosis no bleeding IVDA on methdone, verify dose and continue Mental health continue home medications DVT prophylaxis with SCD boots attending Dr. Chacon full code OBS Quality Stroke Does the patient have a stroke diagnosis?: No VTE Prior VTE?: No VTE Risk Level:: Medical - moderate - high VTE Device Contraindication: N/A - Device Ordered VTE Drug Contraindication: Treatment Not Indicated
--- NOTE | 2022-01-11 14:29 | HE.PHANOTE ---
Methadone Verification Pharmacy has received methadone verification from [facility]. Patient last received methadone 63 mg from [facility]. Dose confirmed with [facility]. Magali Ashraf, DaliaD
--- NOTE | 2022-01-11 14:52 | PHA.MEDREC ---
Pharmacy Consult ? Medication Reconciliation Pharmacy has completed the medication reconciliation. Patient reports only using methadone. Magali Ashraf, DaliaD
[2022-01-11] MEDS: LORazepam 1 MG TABLET 2 MG PO (15:15)
[2022-01-11 16:44] LABS: COVID-19 Test Negative (Negative); IDNOW Serial# 16C4AD1C
[2022-01-11 16:51] LABS: Alanine Aminotransferase 71 U/L (0-40); Albumin Level 2.5 g/dL (3.5-5.0); Alkaline Phosphatase 162 U/L (39-117); Anion Gap 10 (12-20); Aspartate Amino Transferase 158 U/L (5-37); Bilirubin Direct 2.8 mg/dL (0.0-0.5); Bilirubin Total 5.3 mg/dL (0.0-1.0); Blood Urea Nitrogen 7 mg/dL (9-16); Calcium 7.9 mg/dL (8.4-10.2); Carbon Dioxide 25 mmol/L (22-29); Chloride 103 mmol/L (96-108); Creatinine Clr Calc Pharmacy 106.7; Estimated Glomerular Filt Rate > 60; Glucose Random 145 mg/dL (60-115); Potassium 3.7 mmol/L (3.3-5.1); Sodium 134 mmol/L (135-145); Total Protein 8.2 g/dL (6.5-8.0)
[2022-01-11] MEDS: 0.9 % Sodium Chloride Flush 3 ML SYRINGE IVFLUSH (20:12)
[2022-01-12 04:00] VITALS: BP 132/79; PULSE 70; RESP 17; TEMP 36.6; O2SAT 95
[2022-01-12 05:03] LABS: HBS Num1 50.89 mIU/mL (0-7.99); HBsAGNum1 0.27 S/CO (0.00-0.99); Hepatitis B Surface Antigen Negative (Negative); ~Hepatitis B Surface Antibody REACTIVE (Nonreactive)
[2022-01-12 05:58] LABS: HBc Num2 7.89 S/CO; HBc Num3 8.23 S/CO; Hepatitis B Core Antibody Reactive (Nonreactive)
[2022-01-12 07:48] VITALS: BP 130/77; PULSE 65; RESP 18; TEMP 37.1; O2SAT 94
[2022-01-12 07:57] LABS: Basophils Percent Auto 1.2 % (0-2); Eosinophils Percent Auto 1.6 % (0-4); Hematocrit 36.6 % (42.0-52.0); Hemoglobin 12.6 g/dl (14.0-18.0); Lymphocytes Percent Auto 42.4 % (20-40); MANUAL DIFF FLAG SCAN; Mean Corpuscular HGB Conc 34.4 g/dl (31.0-36.0); Mean Corpuscular Hemoglobin 33.1 pg (27.0-33.0); Mean Corpuscular Volume 96.1 fL (80.0-98.0); Mean Platelet Volume 12.1 fL (9.4-12.4); Monocytes Absolute Auto 0.5 X10*3/uL (0.1-1.2); Monocytes Percent Auto 18.8 % (2-11); Neutrophils Absolute Auto 0.9 x10*3/uL (2.0-8.3); Red Blood Count 3.81 X10*6/uL (4.60-5.80); Red Cell Distribution Width 16.2 % (11.0-16.0); SCAN SMEAR FLAG 1
[2022-01-12 08:02] LABS: Platelet Count 56 X10*3/uL (160-400); White Blood Count 2.5 X10*3/uL (4.8-10.8)
[2022-01-12 08:17] LABS: SLIDE REVIEW VERIFIED
[2022-01-12 08:30] LABS: Alanine Aminotransferase 68 U/L (0-40); Albumin Level 2.3 g/dL (3.5-5.0); Alkaline Phosphatase 165 U/L (39-117); Anion Gap 8 (12-20); Aspartate Amino Transferase 148 U/L (5-37); Bilirubin Direct 2.6 mg/dL (0.0-0.5); Bilirubin Total 5.1 mg/dL (0.0-1.0); Blood Urea Nitrogen 8 mg/dL (9-16); Calcium 7.9 mg/dL (8.4-10.2); Carbon Dioxide 26 mmol/L (22-29); Chloride 106 mmol/L (96-108); Creatinine Clr Calc Pharmacy 109.7; Estimated Glomerular Filt Rate > 60; Glucose Fasting 104 mg/dL (60-99); Magnesium 1.7 mg/dL (1.6-2.6); Potassium 3.9 mmol/L (3.3-5.1); Sodium 136 mmol/L (135-145)
[2022-01-12] MEDS: 0.9 % Sodium Chloride Flush 3 ML SYRINGE IVFLUSH ×3 (08:47→19:55)
[2022-01-12] MEDS: methADONE HCl 20 MG/2 ML ORAL.CONC 60 MG PO (08:47)
[2022-01-12 09:27] LABS: Hepatitis A Antibody IgM 0.15 Index (0-0.79); ~Hepatitis A Antibody IgM Nonreactive (Nonreactive)
[2022-01-12] MEDS: Lidocaine 4 % Patch ADH..PATCH 1 PATCH TRANSDERMA (11:33)
--- NOTE | 2022-01-12 11:39 | MHC.RECOVRN ---
Attempted to meet with pt. Pt asleep. Will continue to follow.
[2022-01-12 11:57] VITALS: BP 143/89; PULSE 76; RESP 18; TEMP 36.7; O2SAT 95
--- NOTE | 2022-01-12 13:05 | P.PNIM_ITS ---
Subjective Subjective Date of Service: 01/12/22 Interval History: Abdominal pain,elevated lft's Review of Systems Still has abdominal pain, denies any nausea vomiting or fever or chills Physical Exam Vital Signs: Vital Signs: Last Vital Signs Temp 98.1 F 01/12/22 11:57 Pulse 76 01/12/22 11:57 Resp 18 01/12/22 11:57 BP 143/89 H 01/12/22 11:57 Pulse Ox 95 01/12/22 11:57 O2 Del Method 01/12/22 11:57 O2 Flow Rate 97 01/11/22 05:12 BMI result Body Mass Index 25.8 Appearing in no acute distress ?head is normocephalic atraumatic ?eyes pupils are PERRLA, sclera icteric ?mouth throat mucous membranes are intact and mois ?lung sounds are clear to auscultation ?heart regular rate rhythm, clear? S1, S2 ?positive bowel sounds,epigasrtic pain, nontender ?neuro patient is alert x3, no focal deficits Objective Data Active Medications Acetaminophen (Acetaminophen 325 Mg Tablet) 650 mg PO Q6H PRN PRN Reason: Pain, Mild (Pain Scale 1-3) Capsaicin (Capsaicin 0.025% Cream 60 Gm Tube) 1 appl TOPICAL TID PRN; Protocol PRN Reason: Pain, Mild (Pain Scale 1-3) Lidocaine (Lidocaine 4 % Patch Adh..Patch) 1 patch TRANSDERMA DAILY [facility]; Protocol Last Admin: 01/12/22 11:33 Dose: 1 patch Documented By: CARRINGTON Methadone HCl (Methadone Hcl 20 Mg/2 Ml Oral.Conc) 60 mg PO DAILY [facility] Last Admin: 01/12/22 08:47 Dose: 60 mg Documented By: CARRINGTON Ondansetron HCl (Ondansetron Hcl 4 Mg/2 Ml Vial) 4 mg IVPUSH Q8H PRN PRN Reason: Nausea and Vomiting Pharmacy Consult (Consult Rx Perform Med Rec) 1 each MISCELLANE ONCE PRN PRN Reason: Consult order Sodium Chloride (0.9 % Sodium Chloride Flush 3 Ml Syringe) 3 ml IVFLUSH QSHIFT [facility] Last Admin: 01/12/22 08:47 Dose: 3 ml Documented By: CARRINGTON Labs CBC & Chem 7: 01/12/22 07:24 11/23/22 07:25 Labs: Laboratory Results - last 24 hr 01/11/22 01/11/22 01/11/22 16:20 16:25 16:25 MCV MCH MCHC RDW Plt Count MPV Immature Gran % (Auto) Neut % (Auto) Lymph % (Auto) [place] % (Auto) Eos % (Auto) Baso % (Auto) Lymph # (Auto) [place] # (Auto) Eos # (Auto) Baso # (Auto) Abs Immat Gran (auto) Absolute Neuts (auto) Absolute Nucleated RBC Nucleated RBC % (auto) Smear Tech's Comments Anion Gap 10 L Estim Creat Clear Calc 106.7 Estimated GFR > 60 Random Glucose 145 H D Fasting Glucose Calcium 7.9 L Magnesium Total Bilirubin 5.3 H Direct Bilirubin 2.8 H AST 158 H ALT 71 H Alkaline Phosphatase 162 H Total Protein 8.2 H Albumin 2.5 L COVID-19 (DEREK) Negative COVID-19 Clin Com See Note Hepatitis A IgG Ab Hepatitis A IgM Ab Cancelled Hep Bs Antigen Negative Hep Bs Antibody REACTIVE Hep B Core Total Ab Reactive Hep B Core IgM Ab Cancelled Hepatitis C Ab (EIA) Cancelled 01/11/22 01/12/22 01/12/22 16:25 07:24 07:24 MCV 96.1 MCH 33.1 H MCHC 34.4 RDW 16.2 H Plt Count 56 L MPV 12.1 Immature Gran % (Auto) 0.0 Neut % (Auto) 36.0 L Lymph % (Auto) 42.4 H [place] % (Auto) 18.8 H Eos % (Auto) 1.6 Baso % (Auto) 1.2 Lymph # (Auto) 1.0 L [place] # (Auto) 0.5 Eos # (Auto) 0.0 Baso # (Auto) 0.0 Abs Immat Gran (auto) 0.00 Absolute Neuts (auto) 0.9 L Absolute Nucleated RBC 0.000 Nucleated RBC % (auto) 0.0 Smear Tech's Comments VERIFIED Anion Gap 8 L Estim Creat Clear Calc 109.7 Estimated GFR > 60 Random Glucose Fasting Glucose 104 H Calcium 7.9 L Magnesium 1.7 Total Bilirubin 5.1 H Direct Bilirubin 2.6 H AST 148 H ALT 68 H Alkaline Phosphatase 165 H Total Protein 8.0 Albumin 2.3 L COVID-19 (DEREK) COVID-19 Clin Com Hepatitis A IgG Ab Cancelled Hepatitis A IgM Ab Nonreactive Hep Bs Antigen Hep Bs Antibody Hep B Core Total Ab Hep B Core IgM Ab Hepatitis C Ab (EIA) 01/12/22 07:25 MCV MCH MCHC RDW Plt Count MPV Immature Gran % (Auto) Neut % (Auto) Lymph % (Auto) [place] % (Auto) Eos % (Auto) Baso % (Auto) Lymph # (Auto) [place] # (Auto) Eos # (Auto) Baso # (Auto) Abs Immat Gran (auto) Absolute Neuts (auto) Absolute Nucleated RBC Nucleated RBC % (auto) Smear Tech's Comments Anion Gap TNP Estim Creat Clear Calc TNP Estimated GFR TNP Random Glucose TNP Fasting Glucose Calcium TNP Magnesium Total Bilirubin Direct Bilirubin AST ALT Alkaline Phosphatase Total Protein Albumin COVID-19 (DEREK) COVID-19 Clin Com Hepatitis A IgG Ab Hepatitis A IgM Ab Hep Bs Antigen Hep Bs Antibody Hep B Core Total Ab Hep B Core IgM Ab Hepatitis C Ab (EIA) Assessment and Plan (1) Splenomegaly: Status: Acute (2) Cirrhosis: Status: Acute (3) Thrombocytopenia: Status: Acute (4) HIV (human immunodeficiency virus infection): Status: Acute (5) Elevated LFTs: Status: Acute (6) Hepatitis C: Status: Acute (7) Alcoholic hepatitis: Status: Acute (8) Alcoholic gastritis: Status: Acute Plan 56 year old man placed on observation for abdominal plan for possible retained vs passed stone, HIDA scan neg. Abdominal pain/alcohol hepatitis /gastritis ? passed stone Elevated LFT's HIDA scan neg dilated CBD MRCP -no stone in CBD, alcoholic hepatitis also on the differential but would not recommend steroids given HIV and Hep C. IV fluids,ppi clear liquids for now viral load pending HIV/Hep C Does not appear to be on antiretrovirals, seems like he wants to be treated cd 4 count,viral load pending(hiv and hepatitis C) ID consult Transaminitis/hyperbilirubemia secondary to Cirrhosis follow LFT's-slightly improving RPP pending viral load pending(hiv and hepatitis C) also postive for rhino/enterovirus(uri) Normocytic anemia secondary to cirrhosis no bleeding Thrombocytopenia secondary to HIV, Cirrhosis no bleeding IVDA on methdone, verify dose and continue Mental health continue home medications DVT prophylaxis with SCD boots inpatient need :Abdominal pain/alcohol hepatitis /gastritis, elevated lft's - workup pendin, lft's monitering, ID eval pending Quality Stroke Does the patient have a stroke diagnosis?: No VTE Prior VTE?: No VTE Risk Level:: Medical - moderate - high VTE Device Contraindication: N/A - Device Ordered VTE Drug Contraindication: Treatment Not Indicated
[2022-01-12 13:08] LABS: Rhino/Enterovirus PCR Detected (Not Detect.)
[2022-01-12 13:09] LABS: Adenovirus PCR Not Detected (Not Detect.); Bordetella parapertussis PCR Not Detected (Not Detect.); Bordetella pertussis PCR Not Detected (Not Detect.); Chlamydia pneumoniae PCR Not Detected (Not Detect.); Coronavirus 229E PCR Not Detected (Not Detect.); Coronavirus HKU1 PCR Not Detected (Not Detect.); Coronavirus NL63 PCR Not Detected (Not Detect.); Coronavirus OC43 PCR Not Detected (Not Detect.); Human metapneumovirus PCR Not Detected (Not Detect.); Influenza A PCR Not Detected (Not Detect.); Influenza B PCR Not Detected (Not Detect.); Mycoplasma pneumoniae PCR Not Detected (Not Detect.); Parainfluenza 1 PCR Not Detected (Not Detect.); Parainfluenza 2 PCR Not Detected (Not Detect.); Parainfluenza 3 PCR Not Detected (Not Detect.); Parainfluenza 4 PCR Not Detected (Not Detect.); RSV PCR Not Detected (Not Detect.); SARS-CoV-2 PCR Not Detected (Not Detect.)
[2022-01-12 15:02] VITALS: BP 137/86; PULSE 68; RESP 19; TEMP 37.1; O2SAT 94
[2022-01-12 15:21] LABS: HIV RNA PCR Qn Copies 1390 copies/mL (NOT DETECTED); HIV RNA PCR Qn Log Copies 3.14 (NOT DETECTED)
--- NOTE | 2022-01-12 15:48 | MHC.CM.PN ---
MALE 56 DX ABD PAIN LIVES BY HIMSELF. INDEPENDENT ALL FUNCTIONAL MOBILITY. [facility] REQUESTED A COPY OF HCP. [facility] SHUTTLE TO PROVIDE TRANSPORTATION HOME.
--- NOTE | 2022-01-12 15:53 | MHC.RECOVRN ---
Met with pt in 373 to discuss substance use and recovery resources and supports. Upon entering pts room, pt sitting in bed, awake, alert, easily engages in conversation, watching TV. Pt reports feeling okay. Pt informs t/w that he has been connected to N OTP x 6 months, currently at 60 mg and titrating. Pt had been on 80 mg in the past and found that helpful. Pt reports since initiating methadone, heroin use has decreased to 1-1.5 bundles daily, IV, to 2-3 bags daily. Pt reports alcohol use, a couple beers daily, denies current withdrawal symptoms. Pt denies having supportive family/friends and is currently unstably housed. Discussed resources and harm reduction, pt would like to meet with a head track coach while inpatient. T/w will arrange. Pt denies other questions or concerns at this time.
[2022-01-12 16:46] LABS: HCV Log PCR 5.69 Log IU/mL (NOT DETECTED); HepC Viral Load 492000 IU/mL (NOT DETECTED)
[2022-01-12 19:13] VITALS: BP 134/88; PULSE 90; RESP 18; TEMP 37; O2SAT 99
[2022-01-12 23:52] VITALS: BP 134/82; PULSE 62; RESP 18; TEMP 36.2; O2SAT 96
[2022-01-13 03:00] VITALS: BP 122/85; PULSE 66; RESP 14; TEMP 36.3; O2SAT 97
[2022-01-13 05:54] LABS: Hemoglobin 13.3 g/dl (14.0-18.0); Mean Corpuscular HGB Conc 34.1 g/dl (31.0-36.0); Mean Corpuscular Hemoglobin 33.4 pg (27.0-33.0); Mean Platelet Volume 11.9 fL (9.4-12.4); Red Blood Count 3.98 X10*6/uL (4.60-5.80); Red Cell Distribution Width 15.9 % (11.0-16.0); White Blood Count 2.9 X10*3/uL (4.8-10.8)
[2022-01-13 05:58] LABS: Platelet Count 53 X10*3/uL (160-400)
[2022-01-13 06:15] LABS: Alanine Aminotransferase 81 U/L (0-40); Albumin Level 2.4 g/dL (3.5-5.0); Alkaline Phosphatase 164 U/L (39-117); Anion Gap 9 (12-20); Aspartate Amino Transferase 170 U/L (5-37); Bilirubin Direct 2.9 mg/dL (0.0-0.5); Blood Urea Nitrogen 6 mg/dL (9-16); Carbon Dioxide 25 mmol/L (22-29); Chloride 106 mmol/L (96-108); Creatinine Clr Calc Pharmacy 114.5; Estimated Glomerular Filt Rate > 60; Glucose Random 87 mg/dL (60-115); Potassium 3.8 mmol/L (3.3-5.1); Sodium 136 mmol/L (135-145); Total Protein 8.3 g/dL (6.5-8.0)
[2022-01-13 07:01] VITALS: BP 129/81; PULSE 70; RESP 16; TEMP 36.1; O2SAT 94
[2022-01-13] MEDS: methADONE HCl 20 MG/2 ML ORAL.CONC 60 MG PO (08:08)
[2022-01-13] MEDS: Lidocaine 4 % Patch ADH..PATCH 1 PATCH TRANSDERMA (08:09)
[2022-01-13] MEDS: 0.9 % Sodium Chloride Flush 3 ML SYRINGE IVFLUSH ×3 (08:09→19:58)
[2022-01-13 11:47] VITALS: BP 117/79; PULSE 69; RESP 16; TEMP 36.9; O2SAT 95
[2022-01-13 15:37] VITALS: BP 134/85; PULSE 66; RESP 17; TEMP 36.8; O2SAT 96
[2022-01-13 20:00] VITALS: BP 115/65; PULSE 66; RESP 18; TEMP 36.8; O2SAT 96
[2022-01-14] VITALS: BP 120/91; PULSE 72; RESP 18; TEMP 37.1; O2SAT 98
[2022-01-14 03:45] VITALS: BP 122/62; PULSE 74; RESP 18; TEMP 36.6; O2SAT 94
[2022-01-14 07:10] VITALS: BP 114/75; PULSE 71; RESP 18; TEMP 36.1; O2SAT 94
[2022-01-14] MEDS: methADONE HCl 20 MG/2 ML ORAL.CONC 60 MG PO (08:41)
[2022-01-14] MEDS: Lidocaine 4 % Patch ADH..PATCH 1 PATCH TRANSDERMA (08:41)
[2022-01-14] MEDS: 0.9 % Sodium Chloride Flush 3 ML SYRINGE IVFLUSH ×3 (08:41→22:18)
[2022-01-14 11:05] VITALS: BP 138/73; PULSE 70; RESP 18; TEMP 36.1; O2SAT 94
[2022-01-14 12:11] LABS: Absolute CD3 Count 522 cells/uL (840-3060); Absolute CD4 Count 241 cells/uL (490-1740); Absolute CD8 Count 270 cells/uL (180-1170); Absolute Lymphocytes 696 cells/uL (850-3900); CD4 CD8 Ratio 0.89 (0.86-5.00); Percent CD3 Cells 75 % (57-85); Percent CD4 Cells 35 % (30-61); Percent CD8 Cells 39 % (12-42)
[2022-01-14 15:22] VITALS: BP 132/79; PULSE 66; RESP 18; TEMP 36.7; O2SAT 95
[2022-01-14 19:58] VITALS: BP 123/78; PULSE 69; RESP 18; TEMP 36.8; O2SAT 94
[2022-01-15] VITALS: BP 120/64; PULSE 65; RESP 18; TEMP 36.6; O2SAT 96
[2022-01-15 04:00] VITALS: BP 131/78; PULSE 69; RESP 18; TEMP 36.3; O2SAT 96
[2022-01-15] MEDS: 0.9 % Sodium Chloride Flush 3 ML SYRINGE IVFLUSH ×3 (07:59→19:43)
[2022-01-15] MEDS: Lidocaine 4 % Patch ADH..PATCH 1 PATCH TRANSDERMA (07:59)
[2022-01-15 08:00] VITALS: BP 121/73; PULSE 69; RESP 18; TEMP 36.6; O2SAT 95
[2022-01-15] MEDS: methADONE HCl 20 MG/2 ML ORAL.CONC 60 MG PO (08:00)
[2022-01-15 12:00] VITALS: BP 119/74; PULSE 71; RESP 18; TEMP 36.6; O2SAT 95
[2022-01-15 15:25] VITALS: BP 119/64; PULSE 66; RESP 17; TEMP 36.6; O2SAT 96
[2022-01-15 19:27] VITALS: BP 121/69; PULSE 66; RESP 17; TEMP 36.9; O2SAT 96
[2022-01-16] VITALS (7 sets, daily range): BP systolic 110–137; BP diastolic 56–68; PULSE 63–80; RESP 15–19; TEMP 36.4–36.8; O2SAT 94–96
[2022-01-16] MEDS: Lidocaine 4 % Patch ADH..PATCH 1 PATCH TRANSDERMA (08:20)
[2022-01-16] MEDS: 0.9 % Sodium Chloride Flush 3 ML SYRINGE IVFLUSH ×3 (08:20→23:27)
[2022-01-16] MEDS: methADONE HCl 20 MG/2 ML ORAL.CONC 60 MG PO (08:20)
[2022-01-16 10:03] LABS: Alanine Aminotransferase 88 U/L (0-40); Albumin Level 2.5 g/dL (3.5-5.0); Alkaline Phosphatase 166 U/L (39-117); Anion Gap 10 (12-20); Aspartate Amino Transferase 171 U/L (5-37); Bilirubin Direct 2.6 mg/dL (0.0-0.5); Bilirubin Total 4.6 mg/dL (0.0-1.0); Blood Urea Nitrogen 9 mg/dL (9-16); Calcium 8.2 mg/dL (8.4-10.2); Carbon Dioxide 25 mmol/L (22-29); Chloride 104 mmol/L (96-108); Creatinine Clr Calc Pharmacy 109.7; Estimated Glomerular Filt Rate > 60; Glucose Random 96 mg/dL (60-115); Sodium 135 mmol/L (135-145); Total Protein 8.9 g/dL (6.5-8.0)
[2022-01-16 10:08] LABS: Red Cell Distribution Width 16.2 % (11.0-16.0)
[2022-01-16 10:10] LABS: Hematocrit 43.2 % (42.0-52.0); Hemoglobin 14.6 g/dl (14.0-18.0); Mean Corpuscular HGB Conc 33.8 g/dl (31.0-36.0); Mean Corpuscular Hemoglobin 33.4 pg (27.0-33.0); Mean Corpuscular Volume 98.9 fL (80.0-98.0); Mean Platelet Volume 12.7 fL (9.4-12.4); Red Blood Count 4.37 X10*6/uL (4.60-5.80); White Blood Count 4.6 X10*3/uL (4.8-10.8)
[2022-01-16 10:11] LABS: PLT ABN DIST 1; Platelet Count 62 X10*3/uL (160-400)
--- NOTE | 2022-01-16 13:30 | HO.PM.IMPN ---
Subjective Subjective Date of Service: 01/16/22 Interval History: Abdominal pain,elevated lft's Review of Systems Still has abdominal pain, denies any nausea vomiting or fever or chills Physical Exam Vital Signs: Vital Signs: Last Vital Signs Temp 97.8 F 01/16/22 12:00 Pulse 70 01/16/22 12:00 Resp 18 01/16/22 12:00 BP 117/68 01/16/22 12:00 Pulse Ox 95 01/16/22 12:00 O2 Del Method 01/16/22 12:00 O2 Flow Rate 9 01/14/22 19:58 BMI result Body Mass Index 25.8 Appearing in no acute distress lung sounds are clear to auscultation heart regular rate rhythm, clear S1, S2 positive bowel sounds, abdomen is soft, nontender neuro patient is alert x3, no focal deficits Objective Data Active Medications Acetaminophen (Acetaminophen 325 Mg Tablet) 650 mg PO Q6H PRN PRN Reason: Pain, Mild (Pain Scale 1-3) Capsaicin (Capsaicin 0.025% Cream 60 Gm Tube) 1 appl TOPICAL TID PRN; Protocol PRN Reason: Pain, Mild (Pain Scale 1-3) Lidocaine (Lidocaine 4 % Patch Adh..Patch) 1 patch TRANSDERMA DAILY [facility]; Protocol Last Admin: 01/16/22 08:20 Dose: 1 patch Documented By: JOSE RAUL Methadone HCl (Methadone Hcl 20 Mg/2 Ml Oral.Conc) 60 mg PO DAILY [facility] Last Admin: 01/16/22 08:20 Dose: 60 mg Documented By: JOSE RAUL Ondansetron HCl (Ondansetron Hcl 4 Mg/2 Ml Vial) 4 mg IVPUSH Q8H PRN PRN Reason: Nausea and Vomiting Pharmacy Consult (Consult Rx Perform Med Rec) 1 each MISCELLANE ONCE PRN PRN Reason: Consult order Sodium Chloride (0.9 % Sodium Chloride Flush 3 Ml Syringe) 3 ml IVFLUSH QSHIFT [facility] Last Admin: 01/16/22 08:20 Dose: 3 ml Documented By: JOSE RAUL Labs CBC & Chem 7: 01/16/22 09:17 01/16/22 09:17 Labs: Laboratory Results - last 24 hr 01/16/22 01/16/22 09:17 09:17 MCV 98.9 H MCH 33.4 H MCHC 33.8 RDW 16.2 H Plt Count 62 L MPV 12.7 H Absolute Nucleated RBC 0.000 Nucleated RBC % (auto) 0.0 Anion Gap 10 L Estim Creat Clear Calc 109.7 Estimated GFR > 60 Random Glucose 96 Calcium 8.2 L Total Bilirubin 4.6 H Direct Bilirubin 2.6 H AST 171 H ALT 88 H Alkaline Phosphatase 166 H Total Protein 8.9 H Albumin 2.5 L Assessment and Plan (1) Splenomegaly: Status: Acute (2) Cirrhosis: Status: Acute (3) Thrombocytopenia: Status: Acute (4) HIV (human immunodeficiency virus infection): Status: Acute (5) Elevated LFTs: Status: Acute (6) Hepatitis C: Status: Acute (7) Alcoholic hepatitis: Status: Acute (8) Alcoholic gastritis: Status: Acute Plan 56 year old man placed on observation for abdominal plan for possible retained vs passed stone, HIDA scan neg. Abdominal pain/alcohol hepatitis /gastritis Elevated LFT's, slowly trending down HIDA scan neg dilated CBD initially MRCP -no stone in CBD, alcoholic hepatitis also on the differential but would not recommend steroids given HIV and Hep C. 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 Chacon DISPO possible dc home tomorrow inpatient need :Abdominal pain/alcohol hepatitis /gastritis, elevated lft's -workup pendin, lft's monitering, ID eval pending Quality Stroke Does the patient have a stroke diagnosis?: No VTE Prior VTE?: No VTE Risk Level:: Medical - moderate - high VTE Device Contraindication: N/A - Device Ordered VTE Drug Contraindication: Treatment Not Indicated
[2022-01-17 04:00] VITALS: BP 102/62; PULSE 66; RESP 18; TEMP 36.9; O2SAT 95
[2022-01-17 08:00] VITALS: BP 109/66; PULSE 71; RESP 18; TEMP 36.6; O2SAT 94
[2022-01-17] MEDS: Lidocaine 4 % Patch ADH..PATCH 1 PATCH TRANSDERMA (08:40)
[2022-01-17] MEDS: methADONE HCl 20 MG/2 ML ORAL.CONC 60 MG PO (08:40)
[2022-01-17] MEDS: 0.9 % Sodium Chloride Flush 3 ML SYRINGE IVFLUSH ×2 (08:41→16:15)
--- NOTE | 2022-01-17 09:31 | P.PNIM_ITS ---
Subjective Subjective Date of Service: 01/17/22 Interval History: Abdominal pain,elevated lft's still with YAKELIN pain denies nausea, vomiting Review of Systems Still has abdominal pain, denies any nausea vomiting or fever or chills Physical Exam Vital Signs: Vital Signs: Last Vital Signs Temp 97.9 F 01/17/22 08:00 Pulse 71 01/17/22 08:00 Resp 18 01/17/22 08:00 BP 109/66 01/17/22 08:00 Pulse Ox 94 01/17/22 08:00 O2 Del Method 01/17/22 08:00 O2 Flow Rate 9 01/14/22 19:58 BMI result Body Mass Index 25.8 Appearing in no acute distress Jaundice lung sounds are clear to auscultation heart regular rate rhythm, clear S1, S2 positive bowel sounds, abdomen is soft, nontender neuro patient is alert x3, no focal deficits Objective Data Active Medications Acetaminophen (Acetaminophen 325 Mg Tablet) 650 mg PO Q6H PRN PRN Reason: Pain, Mild (Pain Scale 1-3) Capsaicin (Capsaicin 0.025% Cream 60 Gm Tube) 1 appl TOPICAL TID PRN; Protocol PRN Reason: Pain, Mild (Pain Scale 1-3) Lidocaine (Lidocaine 4 % Patch Adh..Patch) 1 patch TRANSDERMA DAILY [facility]; Protocol Last Admin: 01/17/22 08:40 Dose: 1 patch Documented By: DAMIAN Methadone HCl (Methadone Hcl 20 Mg/2 Ml Oral.Conc) 60 mg PO DAILY [facility] Last Admin: 01/17/22 08:40 Dose: 60 mg Documented By: DAMIAN Ondansetron HCl (Ondansetron Hcl 4 Mg/2 Ml Vial) 4 mg IVPUSH Q8H PRN PRN Reason: Nausea and Vomiting Pharmacy Consult (Consult Rx Perform Med Rec) 1 each MISCELLANE ONCE PRN PRN Reason: Consult order Sodium Chloride (0.9 % Sodium Chloride Flush 3 Ml Syringe) 3 ml IVFLUSH QSHIFT [facility] Last Admin: 01/17/22 08:41 Dose: 3 ml Documented By: DAMIAN Labs CBC & Chem 7: 01/16/22 09:17 01/16/22 09:17 Labs: Laboratory Results - last 24 hr 01/16/22 01/16/22 09:17 09:17 MCV 98.9 H MCH 33.4 H MCHC 33.8 RDW 16.2 H Plt Count 62 L MPV 12.7 H Absolute Nucleated RBC 0.000 Nucleated RBC % (auto) 0.0 Anion Gap 10 L Estim Creat Clear Calc 109.7 Estimated GFR > 60 Random Glucose 96 Calcium 8.2 L Total Bilirubin 4.6 H Direct Bilirubin 2.6 H AST 171 H ALT 88 H Alkaline Phosphatase 166 H Total Protein 8.9 H Albumin 2.5 L Assessment and Plan (1) Splenomegaly: Status: Acute (2) Cirrhosis: Status: Acute (3) Thrombocytopenia: Status: Acute (4) HIV (human immunodeficiency virus infection): Status: Acute (5) Elevated LFTs: Status: Acute (6) Hepatitis C: Status: Acute (7) Alcoholic hepatitis: Status: Acute (8) Alcoholic gastritis: Status: Acute Plan 56 year old man placed on observation for abdominal plan for possible retained vs passed stone, HIDA scan neg. Abdominal pain/alcohol hepatitis /gastritis Elevated LFT's, slowly trending down HIDA scan neg dilated CBD initially MRCP -no stone in CBD, alcoholic hepatitis also on the differential but would not recommend steroids given HIV and Hep C. 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 Flanagan DISPO possible dc home tomorrow inpatient need :Abdominal pain/alcohol hepatitis /gastritis, elevated lft's - workup pendin, lft's monitoring Quality Stroke Does the patient have a stroke diagnosis?: No VTE Prior VTE?: No VTE Risk Level:: Medical - moderate - high VTE Device Contraindication: N/A - Device Ordered VTE Drug Contraindication: Treatment Not Indicated
[2022-01-17 11:44] VITALS: BP 112/69; PULSE 79; RESP 18; TEMP 36.4; O2SAT 93
--- NOTE | 2022-01-17 12:20 | MHC.CM.PN ---
EMR REVIEWED, PER HOSPITALIST PT CONT'S TO HAVE PAIN AND NOT YET READY FOR D/C, ANTIC PT WILL RETURN HOME AND WILL NEED [facility].
[2022-01-17 15:41] VITALS: BP 129/74; PULSE 71; RESP 18; TEMP 36.2; O2SAT 94
--- NOTE | 2022-01-17 16:12 | W.PM.IDCN ---
History of Present Illness Data of Consult Service Date: 01/17/22 Requesting physician: Marah Guardado Primary Care Provider: Patricia Owen MD HPI Reason for consult: CBD dilatation,HIV untreated He presents with two days of RUQ pain and fatigue. He has no fever or chills at this time. He does drink alcohol. He has CBD dilated and seen by GI. He has not been seen at [facility] clinic in year or more probably. Review of Systems Review of Systems: Yes all other systems are reviewed and are negative [facility] Past Medical History Medical History Elevated LFTs Hepatitis C HIV (human immunodeficiency virus infection) Intravenous drug abuse Thrombocytopenia Family History Family history: reviewed and not pertinent Surgical History Surgical History H/O lymph node biopsy Social History Social History Household Members: None Housing: Homeless Do you presently have visiting nurse or other home services: No Alcohol intake: current Alcohol intake frequency: a few times a month Patient Tobacco Use Status: Never used Tobacco Tobacco use type: Cigarette Cigarettes Per Day: 2 Use of substances other than those prescribed or required for medical reasons: No Substance Use Type: Crack/Cocaine and Heroin Substance Use Frequency: Occasionally Last Used Substance: Days (ago) Last Used Substance Other:: couple days ago Currently Displaying Signs/Symptoms of Drug Intoxication Withdrawal: No Have you been hit, kicked, punched, or otherwise hurt by someone within the past year? If so, by whom?: No Do you feel safe in your current relationship?: No Current Relationship Are you made to feel afraid or neglected: No Advance Directives: No Do you have thoughts of harming others: None Do you have a plan to hurt others: No Plan Nutrition Risks: No Nutritional Risk Poor oral hygiene: Yes service: No Current occupational status: unemployed Meds Allergies Allergy/AdvReac Type Severity Reaction Status Date / Time No Known Allergies Allergy Mild NOT Unverified 11/07/19 15:45 APPLICABLE Active Medications: Current Medications Acetaminophen (Acetaminophen 325 Mg Tablet) 650 mg PO Q6H PRN PRN Reason: Pain, Mild (Pain Scale 1-3) Capsaicin (Capsaicin 0.025% Cream 60 Gm Tube) 1 appl TOPICAL TID PRN; Protocol PRN Reason: Pain, Mild (Pain Scale 1-3) Lidocaine (Lidocaine 4 % Patch Adh..Patch) 1 patch TRANSDERMA DAILY [facility]; Protocol Last Admin: 01/17/22 08:40 Dose: 1 patch Methadone HCl (Methadone Hcl 20 Mg/2 Ml Oral.Conc) 60 mg PO DAILY [facility] Last Admin: 01/17/22 08:40 Dose: 60 mg Ondansetron HCl (Ondansetron Hcl 4 Mg/2 Ml Vial) 4 mg IVPUSH Q8H PRN PRN Reason: Nausea and Vomiting Pharmacy Consult (Consult Rx Perform Med Rec) 1 each MISCELLANE ONCE PRN PRN Reason: Consult order Sodium Chloride (0.9 % Sodium Chloride Flush 3 Ml Syringe) 3 ml IVFLUSH QSHIFT [facility] Last Admin: 01/17/22 08:41 Dose: 3 ml Home Medications Medication Instructions Recorded Confirmed Last Taken Type methadone 10 mg/mL oral concentrate 63 mg PO DAILY 10/29/21 01/11/22 01/10/22 05:45 History Physical Exam Vital Signs: Vital Signs: Last Vital Signs Temp 97.2 F 01/17/22 15:41 Pulse 71 01/17/22 15:41 Resp 18 01/17/22 15:41 BP 129/74 01/17/22 15:41 Pulse Ox 94 01/17/22 15:41 O2 Del Method 01/17/22 15:41 O2 Flow Rate 9 01/14/22 19:58 BMI result Body Mass Index 25.8 Const: General: cooperative HEENT: Head: Yes normal to inspection Face and sinus: Yes normal facial exam Mouth: Normal oral and palatal mucosa present Teeth and gingiva: dentition normal Eyes: General: appearance normal, both eyes and all related structures Pupils: Equal, round and reactive pupils present Resp: Effort & Inspection: normal respiratory effort Cardio: Rate: regular rate Rhythm: regular rhythm GI: Palpation (GI): Soft to palpation and nontender : General: Yes no CVA tenderness Back/Spine/Pelvis: Back: no CVA tenderness Skin: General skin exam: no rashes or lesions noted Neuro: General: moves all extremities Cranial nerves: Yes Equal, round and reactive pupils present Extrem: General: Yes normal to inspection Psych: Appearance: grossly normal Results Labs CBC & Chem 7: 01/16/22 09:17 11/27/22 09:17 Assessment and Plan (1) Right upper quadrant abdominal pain: Status: Acute He may have ductal problems due to HIV cholangiopathy or other bacterial causes. His CD4 count is 241 and that is rather high for CMV and other OIs. (2) HIV (human immunodeficiency virus infection): Status: Acute Plan Finish antibiotics course for cholangitis ?7-10d . Po Levaquin and flagyl can be helpful. Will start patient on HAART at [facility] when reappears ,may call [phone] to make patient appt on discharge. He has CD4 count over 200 so no prophylactic antibiotics necessary.
[2022-01-17 20:00] VITALS: BP 110/61; PULSE 75; RESP 18; TEMP 36.4; O2SAT 96
[2022-01-18] VITALS: BP 106/64; PULSE 69; RESP 18; TEMP 36.6; O2SAT 96
[2022-01-18] MEDS: 0.9 % Sodium Chloride Flush 3 ML SYRINGE IVFLUSH ×2 (00:59→08:54)
[2022-01-18 04:00] VITALS: BP 119/72; PULSE 69; RESP 18; TEMP 36.5; O2SAT 96
[2022-01-18 07:48] VITALS: BP 113/68; PULSE 66; RESP 16; TEMP 36.7; O2SAT 96
[2022-01-18] MEDS: Lidocaine 4 % Patch ADH..PATCH 1 PATCH TRANSDERMA (08:53)
[2022-01-18] MEDS: methADONE HCl 20 MG/2 ML ORAL.CONC 60 MG PO (08:54)
--- NOTE | 2022-01-18 09:06 | P.DS_ITS ---
DS: Providers Provider Date of Service: 01/18/22 Date of admission: 01/12/22 08:16 Primary care physician: Patricia Owen MD Consults: 01/11/22 14:16 Consult to Gastroenterology Routine Consulting Provider: Savanna Hernández Reason for consultation: abd pain 01/11/22 14:42 Consult to Infectious Diseases Routine Consulting Provider: Domitila Kimball Reason for consultation: HIV Has provider been notified: No 01/12/22 09:38 Consult to Care Team Routine Comment: Reason for consultation: opoids use/on methadone Attending physician on discharge: Abelino Flanagan Discharging clinician: Marah Guardado DS: Diagnosis Discharge Diagnosis (1) Right upper quadrant abdominal pain: Status: Acute (2) HIV (human immunodeficiency virus infection): Status: Acute DS: Summary Hospital Course Hospital Course: 56 year old man presenting with right upper quadrant pain for 2 days. apaprently he has been drinking alcohol more heavily. He denied? chest pain, nausea, vomiting, diarrhea.? He has not had any recent travel or sick contacts.? His case was discussed with general surgeon and editorial cartoonist.? He had a HIDA scan in the ER which was negative, plan for MRCP which is not pending was in place.? He was noted to have chronic thrombocytopenia, transaminitis and hyper for bilirubinemia with history of cirrhosis and hepatitis c .? His vital signs are stable.? He will be placed on observation for further management and treatment of possible passed stone versus HIV Abdominal pain/alcohol hepatitis /gastritis Elevated LFT's, slowly trending down HIDA scan neg dilated CBD initially, MRCP -no stone in CBD, alcoholic hepatitis also on the differential but would not recommend steroids given HIV and Hep C. regular diet follow up with Dr. 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 Mental health continue home medications Time Spent with Patient Time attestation: Total time spent providing and/or coordinating discharge services: Discharge coordination time: Greater than 30 minutes Quality: Safe Use of Opioids Does Pt have an Active Cancer Diagnosis on the Problem List?: No Quality: Stroke Does the patient have a stroke diagnosis?: No Physical Exam Vital Signs: Vital Signs: Last Vital Signs Temp 98.1 F 01/18/22 07:48 Pulse 66 01/18/22 07:48 Resp 16 01/18/22 07:48 BP 113/68 01/18/22 07:48 Pulse Ox 96 01/18/22 07:48 O2 Del Method 01/18/22 07:48 O2 Flow Rate 9 01/14/22 19:58 BMI result Body Mass Index 25.8 Appearing in no acute distress Jaundice noted head is normocephalic atraumatic eyes pupils are PERRLA sclera is icteric mouth throat mucous membranes are intact and moist neck is supple no lymphadenopathy, no JVD noted lung sounds are clear to auscultation heart regular rate rhythm, clear S1, S2 positive bowel sounds, abdomen is soft, nontender neuro patient is alert x3, no focal deficits Discharge Plan Discharge Anticipated Discharge Date/Time: 01/18/22 09:01 Patient Disposition: Home, Self-Care Discharge Diagnosis: Abdominal pain/alcohol hepatitis /gastritis HIV/Hep C Transaminitis/hyperbilirubemia secondary to Cirrhosis Referrals: Patricia Owen MD [Primary Care Provider] - 1 Week Savanna Hernández MD [Physician] - 1 Week Discharge Medications: Continued methadone 10 mg/mL Concentrate 63 mg PO DAILY Rx Instructions: verified with clinic-see note. [facility] on [facility] [phone] Discharge Orders: Discharge Order (Routine); Ordered 01/18/22 Ordered By: Marah Guardado Diet: Advance to usual diet Activity on Discharge: As tolerated Stand Alone Forms: Patient Portal Discharge page Care Plan Goals: Call HIV Clinic [phone] to schedule an appointment to start HIV medications Health Concerns: Abdominal pain/alcohol hepatitis /gastritis HIV/Hep C Transaminitis/hyperbilirubemia secondary to Cirrhosis Plan of Treatment: Follow-up with primary care provider as needed Take all medications as prescribed Follow-up with editorial cartoonist, make an appointment in a few weeks Assessment: See discharge summary
--- NOTE | 2022-01-18 10:02 | MHC.CM.PN ---
HOME TODAY - SELF C[place] [facility] [place]. RN AWARE OF PLAN.
== END 2022-01-18 11:33 | disposition home or self-care (01) | DRG 280 ==
LOC: HO.ED 15:08 → HO.EDOVER 15:27 → HO.S3 17:16
PROVIDERS: Emergency Medicine; Internal Medicine; Admitting Provider Nurse Practitioner Acute Care; Emergency Provider Emergency Medicine; PCP Family Medicine; Visit Provider Nurse Practitioner Acute Care
DX: K70.10 Alcoholic hepatitis without ascites (principal); B20 Human immunodeficiency virus [HIV] disease; D69.59 Other secondary thrombocytopenia; K74.60 Unspecified cirrhosis of liver; B97.10 Unspecified enterovirus as the cause of diseases classified elsewhere; J06.9 Acute upper respiratory infection, unspecified; K29.20 Alcoholic gastritis without bleeding; D63.8 Anemia in other chronic diseases classified elsewhere; Y90.2 Blood alcohol level of 40-59 mg/100 ml; B19.20 Unspecified viral hepatitis C without hepatic coma; F11.20 Opioid dependence, uncomplicated; Z20.822 Contact with and (suspected) exposure to COVID-19
CPT/HCPCS: 36415; 74176; 74181; 76705; 78226; 80048; 80053; 80076; 81001; 82077; 82248; 83690; 83735; 83880; 85025; 85027; 86359; 86360; 86704; 86706; 86709; 87340; 87522; 87536; 87633; 87635; 99285; A9537

== ENCOUNTER 2022-02-10 14:21 | Emergency (ER) | payer MEDICAID, SELFPAY ==
[2022-02-10 14:34] VITALS: BP 177/96; PULSE 98; RESP 20; TEMP 36.7; O2SAT 95; BMI 25.8
--- NOTE | 2022-02-10 14:39 | ED.GENADULT ---
HPI - General Adult General Chief complaint: General Medical <VERENICE Lewis - Last Filed: 02/14/22 12:33> Stated complaint: methadone dose <VERENICE Lewis - Last Filed: 02/14/22 12:33> Time Seen by Provider: 02/10/22 21:18 <VERENICE Lewis - Last Filed: 02/14/22 12:33> Source: patient <Adarsh Garza MD - Last Filed: 02/11/22 05:56> Mode of arrival: ambulatory <Adarsh Garza MD - Last Filed: 02/11/22 05:56> Limitations: no limitations <Adarsh Garza MD - Last Filed: 02/11/22 05:56> History of Present Illness HPI narrative: Patient with history of substance abuse on methadone missed his dose 3 days, feels anxious used heroin yesterday wants to go to detox so can stop using heroin <Adarsh Garza MD - Last Filed: 02/11/22 05:56> Related Data Home medications: Home Medications Medication Instructions Recorded Confirmed methadone 10 mg/mL oral concentrate 63 mg PO DAILY 10/29/21 01/11/22 <VERENICE Lewis - Last Filed: 02/14/22 12:33> Allergies/adverse reactions: Allergies Allergy/AdvReac Type Severity Reaction Status Date / Time No Known Allergies Allergy Mild NOT Unverified 11/07/19 15:45 APPLICABLE <VERENICE Lewis - Last Filed: 02/14/22 12:33> Review of Systems Review of Systems: Yes all other systems are reviewed and are negative <Adarsh Garza MD - Last Filed: 02/11/22 05:56> PMFSH Past Medical History Medical History: Medical History Alcoholic gastritis Alcoholic hepatitis Cirrhosis Elevated LFTs Hepatitis C Hepatitis C HIV (human immunodeficiency virus infection) Intravenous drug abuse Splenomegaly Thrombocytopenia <VERENICE Lewis - Last Filed: 02/14/22 12:33> Surgical History: Surgical History H/O lymph node biopsy <VERENICE Lewis Last Filed: 02/14/22 12:33> Social History Social History: Social History Household Members: None Housing: Homeless Do you presently have visiting nurse or other home services: No Alcohol intake: current Alcohol intake frequency: 0-2 drinks per day Alcohol type: beer Patient Tobacco Use Status: Never used Tobacco Tobacco use type: Cigarette Cigarettes Per Day: 2 Smoked in Last 30 Days: Yes Use of substances other than those prescribed or required for medical reasons: Yes Substance Use Type: Heroin Advance Directives: No Advance Directives Information Provided: No service: No Current occupational status: unemployed <VERENICE Lewis - Last Filed: 02/14/22 12:33> Physical Exam ED Vital Signs: Vital Signs - 24 hr 02/10/22 14:34 02/10/22 21:17 02/10/22 23:14 Temperature 98.0 F 97.8 F Pulse Rate 98 85 84 Respiratory Rate 20 17 20 Blood Pressure 177/96 H 151/94 H 151/90 H Pulse Oximetry 95 96 97 Oxygen Delivery Method Room Air Room Air 02/11/22 01:52 02/11/22 06:45 Temperature 97.3 F 97.8 F Pulse Rate 99 81 Respiratory Rate 17 17 Blood Pressure 143/94 H 141/83 H Pulse Oximetry 96 97 Oxygen Delivery Method Room Air Room Air BMI result Body Mass Index 25.8 <VERENICE Lewis - Last Filed: 02/14/22 12:33> Vital Signs - 24 hr 02/10/22 14:34 02/10/22 21:17 02/10/22 23:14 Temperature 98.0 F 97.8 F Pulse Rate 98 85 84 Respiratory Rate 20 17 20 Blood Pressure 177/96 H 151/94 H 151/90 H Pulse Oximetry 95 96 97 Oxygen Delivery Method Room Air Room Air 02/11/22 01:52 02/11/22 06:45 Temperature 97.3 F 97.8 F Pulse Rate 99 81 Respiratory Rate 17 17 Blood Pressure 143/94 H 141/83 H Pulse Oximetry 96 97 Oxygen Delivery Method Room Air Room Air BMI result Body Mass Index 25.8 <Adarsh Garza MD - Last Filed: 02/11/22 05:56> Vital Signs - 24 hr 02/10/22 14:34 02/10/22 21:17 02/10/22 23:14 Temperature 98.0 F 97.8 F Pulse Rate 98 85 84 Respiratory Rate 20 17 20 Blood Pressure 177/96 H 151/94 H 151/90 H Pulse Oximetry 95 96 97 Oxygen Delivery Method Room Air Room Air 02/11/22 01:52 02/11/22 06:45 Temperature 97.3 F 97.8 F Pulse Rate 99 81 Respiratory Rate 17 17 Blood Pressure 143/94 H 141/83 H Pulse Oximetry 96 97 Oxygen Delivery Method Room Air Room Air BMI result Body Mass Index 25.8 <VERENICE Morales - Last Filed: 02/11/22 11:45> Appearance: Alert. Oriented X3. No acute distress. Eyes: PERRLA, No Nystagmus ENT: Pharynx normal. Oral Mucosa moist Neck: Normal inspection. Neck supple. CVS: Normal heart rate and rhythm. Pulses normal. Respiratory: No respiratory distress. Equal air entry bilateral, no wheezing/rales/rhonchi Abdomen: Soft and nontender. Bowel sounds are present, no mass palpable, no CVA tenderness Skin: Skin warm and dry. Normal skin color. Normal skin turgor. Extremities: No lower extremity edema. No calf tenderness psych: Mood stable no hallucination/ delusion Neuro: Oriented X 3. No motor deficit. No sensory deficit.No cerebellar signs , cranial nerves II-XII intact <Adarsh Garza MD - Last Filed: 02/11/22 05:56> Course Course Course Narrative: RME: patient missed methadone for the past 3 days and now feeling anxious. Patient would like his methadone dose. <VERENICE Lewis - Last Filed: 02/14/22 12:33> RME: patient missed methadone for the past 3 days and now feeling anxious. Patient would like his methadone dose. 1145 02/11/2022: Patient has bed in [facility]. Patient given methadone dose for today. Recovery team arranging transportation for him. <VERENICE Morales - Last Filed: 02/11/22 11:45> Medications Administered Discontinued Medications Generic Name Dose Route Start Last Admin Trade Name Freq PRN Reason Stop Dose Admin Chlordiazepoxide HCl 5 mg 02/11/22 08:42 02/11/22 08:53 Chlordiazepoxide Hcl 5 Mg Capsule PO 02/11/22 08:43 5 mg ONCE ONE Administration Lorazepam 2 mg 02/10/22 23:02 02/10/22 23:13 Lorazepam 1 Mg Tablet PO 02/10/22 23:03 2 mg ONCE ONE Administration Methadone HCl 40 mg 02/10/22 21:50 02/10/22 22:30 Methadone Hcl 20 Mg/2 Ml Oral.Conc PO 02/10/22 21:51 40 mg ONCE ONE Administration Methadone HCl 40 mg 02/11/22 11:43 02/11/22 12:10 Methadone Hcl 20 Mg/2 Ml Oral.Conc PO 02/11/22 11:44 40 mg ONCE ONE Administration <VERENICE Lewis - Last Filed: 02/14/22 12:33> Medications Administered Discontinued Medications Generic Name Dose Route Start Last Admin Trade Name Freq PRN Reason Stop Dose Admin Chlordiazepoxide HCl 5 mg 02/11/22 08:42 02/11/22 08:53 Chlordiazepoxide Hcl 5 Mg Capsule PO 02/11/22 08:43 5 mg ONCE ONE Administration Lorazepam 2 mg 02/10/22 23:02 02/10/22 23:13 Lorazepam 1 Mg Tablet PO 02/10/22 23:03 2 mg ONCE ONE Administration Methadone HCl 40 mg 02/10/22 21:50 02/10/22 22:30 Methadone Hcl 20 Mg/2 Ml Oral.Conc PO 02/10/22 21:51 40 mg ONCE ONE Administration Methadone HCl 40 mg 02/11/22 11:43 02/11/22 12:10 Methadone Hcl 20 Mg/2 Ml Oral.Conc PO 02/11/22 11:44 40 mg ONCE ONE Administration <Adarsh Garza MD - Last Filed: 02/11/22 05:56> Medications Administered Discontinued Medications Generic Name Dose Route Start Last Admin Trade Name Freq PRN Reason Stop Dose Admin Chlordiazepoxide HCl 5 mg 02/11/22 08:42 02/11/22 08:53 Chlordiazepoxide Hcl 5 Mg Capsule PO 02/11/22 08:43 5 mg ONCE ONE Administration Lorazepam 2 mg 02/10/22 23:02 02/10/22 23:13 Lorazepam 1 Mg Tablet PO 02/10/22 23:03 2 mg ONCE ONE Administration Methadone HCl 40 mg 02/10/22 21:50 02/10/22 22:30 Methadone Hcl 20 Mg/2 Ml Oral.Conc PO 02/10/22 21:51 40 mg ONCE ONE Administration Methadone HCl 40 mg 02/11/22 11:43 02/11/22 12:10 Methadone Hcl 20 Mg/2 Ml Oral.Conc PO 02/11/22 11:44 40 mg ONCE ONE Administration <VERENICE Morales - Last Filed: 02/11/22 11:45> Medical Decision Making Medical Decision Making MDM Narrative: Patient seen by recovery advocate plan to place him in detox in a.m. <Adarsh Garza MD - Last Filed: 02/11/22 05:56> Lab Data Labs: Lab Results 02/10/22 02/11/22 Range/Units 23:51 02:12 Urine Opiates Screen POSITIVE H (Not Detect) Urine Fentanyl Screen POSITIVE H (Not Detect) Ur Barbiturates Screen Not Detected (Not Detect) Ur Phencyclidine Scrn Not Detected (Not Detect) Ur Amphetamines Screen Not Detected (Not Detect) U Benzodiazepines Scrn Not Detected (Not Detect) Urine Cocaine Screen Not Detected (Not Detect) U Marijuana (THC) Screen Not Detected (Not Detect) COVID-19 (DEREK) Negative (Negative) COVID-19 Clin Com See Note <VERENICE Lewis - Last Filed: 02/14/22 12:33> Lab Results 02/10/22 02/11/22 Range/Units 23:51 02:12 Urine Opiates Screen POSITIVE H (Not Detect) Urine Fentanyl Screen POSITIVE H (Not Detect) Ur Barbiturates Screen Not Detected (Not Detect) Ur Phencyclidine Scrn Not Detected (Not Detect) Ur Amphetamines Screen Not Detected (Not Detect) U Benzodiazepines Scrn Not Detected (Not Detect) Urine Cocaine Screen Not Detected (Not Detect) U Marijuana (THC) Screen Not Detected (Not Detect) COVID-19 (DEREK) Negative (Negative) COVID-19 Clin Com See Note <Adarsh Garza MD - Last Filed: 02/11/22 05:56> Lab Results 02/10/22 02/11/22 Range/Units 23:51 02:12 Urine Opiates Screen POSITIVE H (Not Detect) Urine Fentanyl Screen POSITIVE H (Not Detect) Ur Barbiturates Screen Not Detected (Not Detect) Ur Phencyclidine Scrn Not Detected (Not Detect) Ur Amphetamines Screen Not Detected (Not Detect) U Benzodiazepines Scrn Not Detected (Not Detect) Urine Cocaine Screen Not Detected (Not Detect) U Marijuana (THC) Screen Not Detected (Not Detect) COVID-19 (DEREK) Negative (Negative) COVID-19 Clin Com See Note <VERENICE Morales - Last Filed: 02/11/22 11:45> Discharge Plan Discharge Clinical Impression: Opiate dependence <VERENICE Lewis Last Filed: 02/14/22 12:33> Patient Disposition: Home, Self-Care <VERENICE Lewis Last Filed: 02/14/22 12:33> Instructions: Opioid Use Disorder (ED) <VERENICE Lewis Last Filed: 02/14/22 12:33> Additional Instructions: Proceed to [place] as directed. Follow up with your primary care provider. Return to the emergency department immediately if your symptoms worsen or if you develop any dizziness, shortness of breath, difficulty breathing, chest pain, blurry vision, loss of vision, nausea, vomiting, abdominal pain, fever, chills, back pain, or any other complaints. <VERENICE Lewis - Last Filed: 02/14/22 12:33> Prescriptions: No Action methadone 10 mg/mL Concentrate 63 mg PO DAILY Rx Instructions: verified with clinic-see note. [facility] [phone] <VERENICE Lewis - Last Filed: 02/14/22 12:33> [place] [facility] [place] (Call to establish and follow up with a primary care provider. If you already have a primary care provider, please follow up with them. ) [facility] [place]Provider Group] (Call to establish and follow up with a primary care provider. If you already have a primary care provider, please follow up with them. ) [facility] [place] Group] (Call to establish and follow up with a primary care provider. If you already have a primary care provider, please follow up with them. ) <VERENICE Lewis - Last Filed: 02/14/22 12:33> Interventions: ED Discharge Assessment Last Done: 02/11/22 13:00 <VERENICE Lewis Last Filed: 02/14/22 12:33> Discharge Date/Time: 12/23/22 12:30 <VERENICE Lewis - Last Filed: 02/14/22 12:33> Print Language: [place] <VERENICE Lewis - Last Filed: 02/14/22 12:33>
[2022-02-10 21:17] VITALS: BP 151/94; PULSE 85; RESP 17; TEMP 36.6; O2SAT 96
--- NOTE | 2022-02-10 21:30 | MHC.RECOVSUP ---
? Reason for consult:OPI o? Current location:[facility]? o? Identified substance use concern:? -? Withdrawal -? Support ? Intervention: o? Community resources provided o? Harm reduction discussion ? Plan:Wants to be dosed. ? Additional information:CELSA met with pt, he states he's on the MAT clinic on [facility] in [place], and would like to be dosed because he missed his dose 3 days in a row. CELSA provided pt with RC information and pamphlet.
[2022-02-10] MEDS: methADONE HCl 20 MG/2 ML ORAL.CONC 40 MG PO (22:30)
[2022-02-10] MEDS: LORazepam 1 MG TABLET 2 MG PO (23:13)
[2022-02-10 23:14] VITALS: BP 151/90; PULSE 84; RESP 20; O2SAT 97
--- NOTE | 2022-02-10 23:15 | PC.NURSE ---
pt reports palpitations and anxiety. HR [address] Corrigan informed. order placed for 2mg ativan PO at this time. pt medicated according to mar
--- NOTE | 2022-02-11 00:06 | MHC.EDTECH ---
Pt made aware that a urine sample is needed. Pt given urine cup and wipes to take with him when he is ready to urinate. Pt given ice water and clemencia olena.
[2022-02-11 00:09] LABS: COVID-19 Test Negative (Negative)
--- NOTE | 2022-02-11 01:25 | PC.NURSE ---
pt resting comfortably on stretcher at this time. RR 18 nonlabored
[2022-02-11 01:52] VITALS: BP 143/94; PULSE 99; RESP 17; TEMP 36.3; O2SAT 96
[2022-02-11 02:31] LABS: Amphetamine Screen Urine Not Detected (Not Detect); Barbiturates, Urine Not Detected (Not Detect); Benzodiazepines Screen Urine Not Detected (Not Detect); Cannabinoid Screen Urine Not Detected (Not Detect); Cocaine Screen Urine Not Detected (Not Detect); Fentanyl, urine POSITIVE (Not Detect); Opiate Screen Urine POSITIVE (Not Detect); Phencyclidine Screen Urine Not Detected (Not Detect)
--- NOTE | 2022-02-11 03:11 | PC.NURSE ---
pt sleeping on stretcher at this time RR14 nonlabored at this time
[2022-02-11 06:45] VITALS: BP 141/83; PULSE 81; RESP 17; TEMP 36.6; O2SAT 97
[2022-02-11] MEDS: chlordiazePOXIDE HCl 5 MG CAPSULE PO (08:53)
--- NOTE | 2022-02-11 10:18 | MHC.RECOVRN ---
Pts referral sent to [facility] Pich[facility] and Sara[facility]. Awaiting review.
--- NOTE | 2022-02-11 11:54 | MHC.RECOVRN ---
This hand sign writer took report from Pricilla Correa, Addiction RN. Referral was sent to [facility]. This hand sign writer confirmed, patient accepted for admission to [facility]. Plan of care before discharge includes, pt to receive MTD dose of 40mg, then t/w will coordinate Lyft to [facility]. Provider aware of plan and MTD ordered. Pt agreeable to plan.
[2022-02-11] MEDS: methADONE HCl 20 MG/2 ML ORAL.CONC 40 MG PO (12:10)
--- NOTE | 2022-02-11 12:13 | PC.NURSE ---
pt medicated per provider order, pt pending ride to detox.
== END 2022-02-11 12:30 | disposition home or self-care (01) ==
PROVIDERS: Emergency Provider Internal Medicine
DX: F11.20 Opioid dependence, uncomplicated (principal); B20 Human immunodeficiency virus [HIV] disease; B19.20 Unspecified viral hepatitis C without hepatic coma; F17.210 Nicotine dependence, cigarettes, uncomplicated; Z20.822 Contact with and (suspected) exposure to COVID-19
CPT/HCPCS: 80307; 87635; 99284